=== PATIENT | female | born 1995 | race Caucasian/White ===

== ENCOUNTER 2024-02-26 09:13 | Emergency (ER) | payer BC, SELFPAY ==
[2024-02-26 09:25] VITALS: BP 97/66; PULSE 75; RESP 17; TEMP 36.6; O2SAT 98; BMI 21.7
[2024-02-26 09:35] LABS: Apearance,Urine Cloudy (Clear); Color,Urine Dark Yellow (Yellow); Protein,Urine 1+ (Negative); Specific Gravity, Urine 1.015 (1.005-1.030)
[2024-02-26 09:36] LABS: Bilirubin,Urine Negative (Negative); Blood, Urine 3+ (Negative); Glucose,Urine (UA) Negative (Negative); Ketones,Urine Negative (Negative); UTC Leukocyte Esterase,Urine 2+ (Negative); UTC Nitrate,Urine Negative (Negative); Urobilinogen,Urine 0.2 EU/dl (0.2)
--- NOTE | 2024-02-26 10:09 | ED_ITS ---
Discharge Plan Disposition Patient Disposition: Home, Self-Care Condition: Good Prescriptions Prescriptions: New ciprofloxacin HCl [Cipro] 500 mg tablet 500 mg PO Q12H 3 Days Qty: 6 0RF phenazopyridine [Pyridium] 100 mg tablet 100 mg PO TID Qty: 6 0RF No Action escitalopram oxalate 10 mg tablet 10 mg PO DAILY Referrals Follow up/Referrals: Ovi Lorenz MD [Primary Care Provider] - See instructions Activity Restrictions/Add. Instructions Additional Instructions/Restrictions: Take medication as prescribed. Take Tylenol/Ibuprofen as needed for fever/pain. UTI *Increase fluids. Water not Soda or Tea *Start antibiotic immediately and be sure to take as ordered for the FULL length of time although you should start to see improvement over the next 48 hours *Pyridium as needed Remember this medication will turn your urine . This is normal but it will stain what ever it gets on *You should not use Pyridium for more than 48 hours. If so , follow up with your primary physician to review urine culture and ensure that antibiotic is adequate for infection *Be SURE to follow up anytime for new or worsening symptoms with your family doctor. AND in 48 hours for urine culture results with your family doctor, if you do not have a doctor then you may call back to the [facility] for urine culture results and further treatment. We do recommend that you choose and establish care with a Primary Care Physician. ?AND follow up with them ?in 10-14 days to repeat UA to ensure infection is resolved and blood no longer present *Be sure to let your PCP know that we sent urine cultures from the [facility] so they can follow up to ensure that you area the on the correct antibiotic Call your doctor office and make appointment for 48 hours (2 days from today) ?to follow up and get the results of your urine culture and further treatment or call the [facility] for culture results. Clinical Impressions Clinical Impression: UTI (urinary tract infection) Qualifiers: Urinary tract infection type: acute cystitis Hematuria presence: with hematuria Qualified Code(s): N30.01 - Acute cystitis with hematuria Stand Alone Forms Stand Alone Forms: Work/School Release Instructions Patient Instructions: DI for Urinary Tract Infection (UTI) Print Language Print Language: Thai Discharge ED Provider: Jewell Mejia [facility] HPI General Stated complaint: UTI Mode of Arrival: Ambulatory Source of Information: Patient Limitations: No Limitations Time Seen by Provider: 02/26/24 10:08 Description of Symptoms (Recalled from Triage Doc. by RN): PATIENT C/O BURNING AND URGENCY WITH URINATION AND LOWER ABDOMINAL PAIN X 2 DAYS HEENT Symptoms (Recalled from RN notes): No Resp Symptoms (Recalled from RN notes): No Skin Symptoms (Recalled from RN notes): No MS Symptoms (Recalled from RN notes): No Functional Status (Recalled from RN notes): WNL Related Data Home Medications ?Medication ?Instructions ?Recorded ?Confirmed escitalopram oxalate 10 mg tablet 10 mg PO DAILY 02/26/24 02/26/24 Previous Rx's ?Medication ?Instructions ?Recorded ciprofloxacin HCl 500 mg tablet 500 mg PO Q12H 3 days #6 tabs 02/26/24 (Cipro) phenazopyridine 100 mg tablet 100 mg PO TID 6 doses #6 tabs 02/26/24 (Pyridium) Allergies Allergy/AdvReac Type Severity Reaction Status Date / Time latex Allergy Rash Verified 02/26/24 09:37 Worker's Comp Is this a Worker's Comp case?: No [facility] Disclaimer: The information contained in this section may have been updated after the patient was seen, as this information can be updated by other users. Social History Smoking Status: Never smoker alcohol intake: current alcohol intake frequency: holidays/special occasions only current occupational status: employed Travel in the last 8 weeks: Outside the [facility] ROS Obtained: Yes All systems reviewed & no additional complaints except as documented Constitutional Constitutional: Reports system reviewed and no additional complaints, except as documented Eyes Eyes: Reports system reviewed and no additional complaints, except as documented ENT Ears, Nose, Mouth, and Throat: Reports system reviewed and no additional complaints, except as documented Cardiovascular Cardiovascular: Reports system reviewed and no additional complaints, except as documented Respiratory Respiratory: Reports system reviewed and no additional complaints, except as documented Gastrointestinal Gastrointestingal: Reports system reviewed and no additional complaints, except as documented Genitourinary Female Genitourinary: Reports system reviewed and no additional complaints, except as documented, Reports as per HPI, Reports dysuria, Reports urinary frequency and Reports urinary urgency Musculoskeletal Musculoskeletal: Reports system reviewed and no additional complaints, except as documented Integumentary/Breasts Skin/Breast: Reports system reviewed and no additional complaints, except as documented Neurologic Neurologic: Reports system reviewed and no additional complaints, except as documented Endocrine Endocrine: Reports system reviewed and no additional complaints, except as documented Hematologic/Lymphatic Henatologic/Lymphatic: Reports system reviewed and no additional complaints, except as documented Allergic/Immunologic Allergic/Immunologic: Reports system reviewed and no additional complaints, except as documented Physical Exam General General appearance: alert and in no apparent distress Head Head exam: atraumatic and normocephalic Eye Eye exam: Present normal appearance ENT ENT exam: Present normal exam Neck Neck exam: Present normal inspection; Absent lymphadenopathy Chest Chest inspection: Present normal inspection and symmetric chest wall rise Respiratory Respiratory exam: Present normal lung sounds bilaterally Cardiovascular Cardiovascular exam: Present regular rate, normal rhythm and normal heart sounds Abdominal Exam Abdominal exam: Present soft, tenderness and normal bowel sounds Abdominal tenderness: Present suprapubic Extremities Exam Extremities exam: Present normal inspection Back Exam Back exam: Present normal inspection Neurological Exam Neurological exam: Present alert and oriented X3 Psychiatric Psychiatric exam: Present normal affect and normal mood Skin Skin exam: Present warm, dry and intact Lymphatic Lymphatic Findings: no adenopathy Medical Decision Making Medical Records Screening: Per USPSTF and CDC recommendations, given the prevalence of disease in our region, it is our hospital?s policy to screen for HIV and viral Hepatitis for all patients aged 18 and over and those with ongoing risk factors. Александр Inquiry Pt receiving controlled substance: No Александр was queried for this patient: No Vital Signs: 02/26/24 09:25 Temperature 97.9 F Temperature Source Oral Pulse Rate [Left Brachial] 75 Respiratory Rate 17 Blood Pressure [Left Arm] 97/66 L Blood Pressure Mean [Left Arm] 76 Blood Pressure Source [Left Arm] Automatic Cuff Blood Pressure Position [Left Arm] Sitting 02 Sat by Pulse Oximetry 98 Oxygen Delivery Method Room Air Lab Data Lab results reviewed: Yes I reviewed the patient's lab results. Lab Results 02/26/24 09:24: Urine Color Dark yellow, Urine Appearance Cloudy, Urine pH 7.0, Ur Specific [place] 1.015, Urine Protein 1+, Urine Glucose (UA) Negative, Urine Ketones Negative, Urine Blood 3+, Urine Nitrate Negative, Urine Bilirubin Negative, Urine Urobilinogen 0.2, Ur Leukocyte Esterase 2+ A Orders (Tests/Meds): ORDERS Category Date Time Status Urine Culture Stat Micro 02/26/24 09:10 Received
[2024-02-26 10:33] VITALS: BP 97/66; PULSE 75; RESP 17; TEMP 36.6; O2SAT 98
--- NOTE | 2024-02-28 08:06 | PC.NURSE ---
URINE CULTURE REVIEWED WITH Kelvin CARRANZA APRN, NO CHANGES NEED AT THIS TIME
== END 2024-02-26 10:36 | disposition home or self-care (01) ==
PROVIDERS: Emergency Provider Nurse Practitioner Family; PCP Family Medicine
DX: N30.01 Acute cystitis with hematuria (principal); R30.0 Dysuria; R35.0 Frequency of micturition
CPT/HCPCS: 81003; 87086; 87088; 87186; 99212; G0381

== ENCOUNTER 2024-05-30 09:08 | Outpatient (CLI) | payer BC, SELFPAY ==
[2024-05-30 09:29] LABS: Basophils # 0.1 K/mm3 (0-0.2); Basophils % 0.9 % (0.1-2.0); Eosinophils # 0.1 K/mm3 (0.0-0.4); Eosinophils % 1.7 % (0.1-12.0); Hematocrit 41.6 % (37.0-47.0); Hemoglobin 13.6 g/dL (12.2-16.2); Lymphocytes # 2.9 K/mm3 (0.7-4.5); Lymphocytes % 42.9 % (10-50); Mean Corpuscular HGB Conc 32.7 g/dL (31.8-35.4); Mean Corpuscular Hemoglobin 29.2 pg (27.0-31.2); Mean Corpuscular Volume 89.3 fl (81-99); Mean Platelet Volume 11.6 fl (7.4-10.4); Monocytes # 0.3 K/mm3 (0.1-1.0); Neutrophils # 3.3 K/mm3 (1.8-7.8); Neutrophils % 49.3 % (37.0-80.0); Platelet Count 204 K/mm3 (142-424); Red Blood Count 4.66 M/mm3 (4.20-5.40); Red Cell Distribution Width 12.7 % (11.5-17.5); White Blood Count 6.6 K/mm3 (4.8-10.8)
[2024-05-30 10:05] LABS: Alanine Aminotransferase 17 U/L (12-78); Albumin Level 4.4 g/dl (3.5-5.0); Albumin/Globulin Ratio 1.5 (1.1-1.8); Anion Gap 10.6 mEq/L (5-15); Aspartate Amino Transferase 24 U/L (14-36); Bilirubin,Total 0.5 mg/dl (0.2-1.3); Blood Urea Nitrogen 7 mg/dl (7-17); Calcium 9.6 mg/dl (8.4-10.2); Carbon Dioxide 31 mmol/L (22.0-30.0); Chloride 102 mmol/L (98-107); Estimated Glomerular Filt Rate 117 ml/min (>60); GFR (African American) 141 ML/MIN (>60); Globulin 2.9 g/dL (1.3-3.2); Glucose 90 mg/dl (74-100); Potassium 4.6 mmoL/L (3.5-5.1); Sodium 139 mmol/L (136-145); Total Protein,Serum 7.3 g/dl (6.3-8.2); Triglycerides 125 mg/dl (30-150)
[2024-05-30 10:06] LABS: Alkaline Phosphatase 45 U/L (38-126); Chol/HDL Ratio 2.2 (1-3.5); Cholesterol 224 mg/dl (140-200); HDL Cholesterol 102 mg/dl (40-60); VLDL Cholesterol 25 mg/dL (0-40)
[2024-05-30 10:17] LABS: Direct LDL Cholesterol 79.21 mg/dL (100-129)
[2024-05-30 10:23] LABS: 25-OH Vitamin D, Total 31.1 ng/mL (30-100)
[2024-05-30 10:38] LABS: Thyroid Stimulating Hormone 1.23 uIU/mL (0.465-4.68)
[2024-05-31 11:18] LABS: Estradiol 24.3 pg/mL (.); FSH 4.3 mIU/mL (.); Insulin Level Total 7.8 uIU/mL (2.6-24.9); Prolactin 10.7 ng/mL (4.8-33.4); Testosterone,Total 28 ng/dL (8-60)
[2024-06-02 22:19] LABS: Anti Mullerian Hormone (AMH) 15.8 ng/mL (.)
== END 2024-05-30 23:59 | disposition home or self-care (01) ==
LOC: LAB 09:09
PROVIDERS: PCP Family Medicine; Visit Provider Obstetrics & Gynecology
DX: M41.9 Scoliosis, unspecified (principal); K58.9 Irritable bowel syndrome, unspecified
CPT/HCPCS: 36415; 80053; 80061; 82306; 82397; 82670; 83001; 83036; 83525; 84146; 84403; 84443; 85025

== ENCOUNTER 2024-09-28 09:28 | Outpatient (CLI) | payer BC, SELFPAY ==
--- OUTSIDE RECORDS SUMMARY | 2023-11-11 07:15 | XMS_ITS ---
Author Organization [facility] Address [address] [facility] [address] [place] [phone] Care Team Providers Care Cloth Mercerizer Operator Name Role Phone Ovi Lorenz Primary Care [...] Problem Status W/U Status Risk Notes Problem PCOS (polycystic ovarian syndrome) (E28.2) Active confirmed Vital Signs Blood pressure systolic 112 mm Hg 11/11/19 24 Blood pressure diastolic 70 mm Hg 024 Heart Rate 77 /min 11/11/2023 Height 63 in 11/11/2023 Weight 115.4 lbs 11/11/2023 BMI 20.44 kg/m2 11/11/2023 Encounters Encounter Location Date Provider Diagnosis [facility] [address] [place] [phone] 11/11/2023 Ovi Lorenz Iritis H20.9 ; Acne [...] * MINNIE MONTIELEDOB:[birth year] (29 yo F)Acc No.[id number]:11/11/2023 Progress Notes Patient: JORDON JOHNSON Provider: Hamilton Lorenz M.D. :1995 A ge:28 Y S ex:Female Date:11/11/2023 Address:[address] [place] [address] Subjective: * Chief Complaints: * 1 . To get established. * HPI: H PI: 28 year old female presents with c/o Patient is here today for?Pt here to establish care, previously seen by Dariana Aldrich APRN in [place]. Pt states she was recently dx with Iritis by Dr. Kasey farmer [facility] in [place] a nd was advised to see a General Cleaner, pt unsure if she needs referral . * ROS: D ERMATOLOGY: no R ivis. n o H noble. G ASTROENTEROLOGY: no N ausea. n o V omiting. U ROLOGY: no D ifficulty urinating. n o B lood in urine. * Medical History: I rritable Bowel Syndrome, Anxiety, PCOS. 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 * Procedure Codes: * Electronic signature of Palak Lorenz MD on 09/28/2024 at 09:30 AM EDT Sign off status: Pending * Provider: Hamilton Lorenz M.D. Date: 0 11/11/2023 Generated for Flor rice/Marivel/Andriyitting on: 0 09/28/2024 09:30 AM EDT History and Physical Notes * HPI (History of Present Illness) Category Sub-Category Detail Notes Category Not es HPI Patient is here today for Pt her e to establish care, previously seen by Dariana Aldrich APRN in [place]. Pt states she was recently dx with Iritis by Dr. Kasey Urbina at [facility] in [place] and was advised to see a General Cleaner, pt unsure if she needs referral Examination Category Sub-Category Detail Notes Category Not es General Examination Heart: RSR Lungs: clear to auscultatio n Extremities: no leg edema General Appearance: NAD Skin: scattered comedones, papules and a few pustules on face Peripheral pulses: normal (2+) bilatera lly
--- OUTSIDE RECORDS SUMMARY | 2024-03-02 07:15 | XMS_ITS ---
Author Organization [facility] Address [address] [place] [phone] Care Team Providers Care Ems Educator Name Role Phone Ovi Lorenz Primary Care [...] growth Performing Lab: Notes/Report: Test performed by [employer] [address] [place] [address] , [address], [place] [address] Alcon Jhaveri MD, Pitch Gatherer CLIA: [id number] Specimen Source Urine - Void Culture, Urine See Below Final Report : No growth REASON FOR VISIT [facility] f/u Medications Medication SIG (Take, Route, Fr [...] Provider Diagnosis [facility] [address] [facility] [address] [place] [phone] 03/02/2024 Ovi Lorenz Urinary tract infection, site [...] * TIANA LISAJEFEJOHANNAOB:[birth year] (29 yo F)Acc No.[id number]:03/02/2024 Progress Notes Patient: JORDON JOHNSON Provider: Hamilton Lorenz M.D. :1995 A ge:28 Y S ex:Female Date:03/02/2024 Address:[address] [place] [address] [place], [place] Subjective: * Chief Complaints: * 1 . [facility] f/u. * HPI: H PI: 28 year old female presents with c/o Here for follow up on:?02/26/2024 [facility] visit. Pt went to [facility] for burning with urination, urgency and lower [...] * Images: Billing Information: * Visit Code: 65435 Office Visit, Est Pt., Level 3. * Procedure Codes: 14857 Urinalysis, no micro. * Electronic signature of Palak Lorenz MD on 09/28/2024 at 09:30 AM EDT Sign off status: Pending * Provider: Hamilton Lorenz M.D. Date: 0 03/02/2024 Generated for Flor rice/Marivel/eTransmitting on: 0 09/28/2024 09:30 AM EDT History and Physical Notes * HPI (History of Present Illness) Category Sub-Category Detail Notes Category Not es HPI Here for follow up on: 5 [facility] visit. Pt went to [facility] for burning with urination, urgency and lower [...]
--- OUTSIDE RECORDS SUMMARY | 2024-04-13 05:45 | XMS_ITS ---
[facility] Organization [facility] Address [address] [place] [phone] Care Team Providers Care Joinery Patternmaker Name Role Phone Ovi Lorenz Primary Care Provider Maite Webster Unavailable [phone] Allergies Allergen (clinical drug ingredient) Drug/Non Drug [...] growth Performing Lab: Notes/Report: Test performed by [facility], [facility] [address] [place] [address] , [address], [place] [address] Alcon Jhaveri MD, Mortgage Funder CLIA: [id number] Specimen Source Urine - Void Culture, Urine [...] Provider Diagnosis [facility] [address] [id number] 04/13/2024 Maite Webster Dysuria R30.0 Assessments Encounter [...] * MINNIE MONTIELEDOB:[birth year] (29 yo F)Acc No.[id number]:04/13/2024 Progress Notes Patient: JORDON JOHNSON Provider: ARNOLD Guillory :1995 A ge:28 Y S ex:Female Date:04/13/2024 Address:[address] [place], [place] [phone] Pcp:Ovi Lorenz Subjective: * Chief Complaints: * 1 . Possible uti. * HPI: U rology: 28 year old female presents with c/o frequent urination. c/o burning sensation. c/o flank pain. c/o Pressure. Denies : fever. Pt sts her symptoms started on Thursday, and sts that she does have test strips at home which lit up like a Byron tree. * ROS: D ERMATOLOGY: no R [...] * Images: Billing Information: * Visit Code: 99815 Office Visit, Est Pt., Level 3. * Procedure Codes: 47546 Urinalysis, no micro. 3074F SYST BP LT 130 MM HG. 3078F DIAST BP < 80 MM HG. * Electronic signature of ARNOLD Stanley on 09/28/2024 at 09:31 AM EDT Sign off status: Pending * Provider: ARNOLD Guillory Date: 0 04/13/2024 Generated for Flor rice/Marivel/Diana on: 0 09/28/2024 09:31 AM EDT History and Physical Notes * [...]
--- OUTSIDE RECORDS SUMMARY | 2024-08-24 08:30 | XMS_ITS | Encounter Summary ---
Author Organization [facility] Address [address] [place] [address] Care Team Providers Care Facilities Manager Name Role Phone Tracy Aldrich APRN Primary Care Provider Reason for Visit * Reason Comments Eyemed Exam Encounter Details Date Type Department Care Team (Late st Contact Info) Description 08/24/2024 8:30 AM EDT Office Visit [facility] [address] [facility] [address] [place] [address] Smita Dallas, OD [address] [facility] [address] [place] [address] Myopia of both eyes (Primary [...] place to sleep or slept in a nursing home (including now)? No 04/27/2023 Utilities Answer Date Recorded In the past 12 months has th e [employer], gas, oil, or water [employer] threatened to shut off services in your [...] use of eye drops. Last edited by Kirstine Spears on 08/24/2024 8:43 AM. Lab Results [...] every night. cholecalciferol (Vitamin D-3) 1.25 MG (36917 UT) capsule Take 1 capsule (50,000 Units) [...] optic nerve Refraction Wearing Rx Sphere Cylinder [place] Right -9.50 +1.25 064 Left -9.00 +0.50 106 Type: SVL Manifest Refraction (Auto) Sphere Cylinder [place] Dist VA Right -10.00 +1.25 066 20/25 Left -10.50 +2.00 097 20/20 Manifest Refraction #2 Sphere Cylinder [place] Dist VA Right -9.50 +0.75 075 20/20 -2 Left -9.50 +1.25 106 20/20 -2 Final Rx Sphere Cylinder [place] Dist VA Right -9.50 +0.75 075 20/20 -2 Left -9.50 +1.25 106 20/20 -2 Expiration Date: 08/24/2025 Contact Lens Exam Current Contact Lens Rx Brand Base Curve Diameter Sphere Cylinder [place] Addl. Specs Right Precision 1 for Astigmatism One Day 8.5 14.5 -8.00 -1.25 160 last Rx Left Precision 1 for Astigmatism One Day 8.5 14.5 -8.00 -1.25 020 last Rx Current Contact Lens Rx #2 Brand Base Curve Diameter Sphere Cylinder [place] Addl. Specs Right Acuvue 1 Day Moist for Astigmatism 8.5 14.5 -8.50 -1.25 170 favored old Rx Left Acuvue 1 Day Moist for Astigmatism 8.5 14.5 -8.50 -1.25 180 favored old Rx Current Contact Lens Rx #3 (Trial Lens, Ordered) Brand Base Curve Diameter Sphere Cylinder [place] Addl. Specs Right Acuvue 1 Day Moist [...] Office Visit [facility] [address] [place] [address] [place] [address] Smita Dallas, OD [address] [place] [address] documented as of this encounter [...] documented as of this encounter Care Teams Facilities Manager Relationship Specialty Start Date End Date Tracy Aldrich APRN [address] [place] [address] PCP - General 05/12/22 documented as of this encounter
--- OUTSIDE RECORDS SUMMARY | 2024-09-28 09:30 | XMS_ITS | Patient Health Record ---
Author Organization [facility] Address [address] [facility] [address] [place] [address] Care Team Providers Care Ornamental Bronze Worker Name Role Phone Piper Chiu Unavailable [phone] Allergies Allergen (clinical drug ingredient) Drug/Non Drug Allergy documented on EMR Reaction Allergy Type Onset Date Status oxycodone OXYCODONE (uncoded) Unspecified Allergy 10/29/19 18 Active Reason For Referral No Information Social History Social History Additional Details Category Social Info Options Details Miscellaneous: Caffeine: CAFFEINE USE: 1-3 /day Problems Problem Type SNOMED Code ICD Code Onset Dates Problem Status W/U Status Risk Notes Problem Cervical smear, as part of routine gynecological examination (Z01.419) 6 Active confirmed Annual without abnormal findings Plan Of Treatment No Information Medical (General) History Medical History History ICD Code Anxiety Urinary Tract Infections Yeast Infections A Routine ABORTIONS: 0 MENSTR FLOW: Moderate GILDESS FE 1.5/30 1.5-30 MG-MCG ORAL TAB LET, ORAL Surgical History Surgery Date(Month/Year) denies
--- OUTSIDE RECORDS SUMMARY | 2024-09-28 09:30 | XMS_ITS | Clinical Summary ---
Author Organization [facility] Address [address] [place] [id number] Care Team Providers Care Air Commodore Name Role Phone Jannette Armenta MD Primary Care Provi kailey Allergies Active Allergy Reactions Criticality Noted Date Comments Latex 02/07/2016 Medications Norethindrone Acet-Ethinyl Est (LOESTRIN 1.530, 21,) 1.5-30 MG-MCG tablet Take by mouth. Active Active Problems Problem Noted Date Diagnosed Date Chronic constipation 02/07/2016 Acne vulgaris 01/25/2016 Immunizations Immunization Administration Dates Next Due Tdap 06/19/2017 Family History Medical History Relation Name Comments Mental illness Father Other Father Suicide Stroke Father Relation Name Status Comments Father Social History Tobacco Use Types Packs/Day Years Used Date Smoking Tobacco: Never Smokeless Tobacco: Never Alcohol Use Standard Drinks/Week Comments Not Asked 0 (1 standard drink = 0.6 oz pur e alcohol) Abuse Screen Answer Date Recorded Unsafe at Home or Work/School Not on file Feels Threatened by Someone? Not on file 10/2022 Does Anyone Keep You from Co ntacting Others or Doint Things Outside the Home? Not on file 12/01/2022 Physical Sign of Abuse Present Not on file 1 Housing Stability Answer Date Recorded Current Living Arrangements Not on file 10/2022 Potentially Unsafe Housing Conditions Not on matilde e 12/01/2022 Family and Community Support Answer Corey e Recorded Help with Day-to-Day Activities Not on file 12/01/2022 Lonely or Isolated Not on file 12/01/2022 Employment Answer Date Recorded Do you want help finding or keeping work or a mariaelena b? Not on file 12/01/2022 Disabilities Answer Date Recorded Concentrating, Remembering, or Making Decisions Difficulty Not on file 12/01/2022 Doing Errands Independently Difficulty Not on fi le 12/01/2022 Education Answer Date Recorded Help with school or training? Not on file Preferred Language Not on file 12/01/2022 Comments Unknown Sex and Gender Information Value Date Recorded Sex Assigned at Female 11/25/2019 9:49 AM EDT Legal Sex Female 8:41 PM EDT Gender Identity Female 11/25/2019 9:49 AM EDT Sexual Orientation Straight 11/25/2019 9: 49 AM EDT Last Filed Vital Signs Vital Sign Reading Time Taken Comments Blood Pressure 105/62 06/19/2017 8:21 AM EDT Pulse 82 07/13/2014 1:10 PM EDT Temperature 36.3 C (97.3 F) 06/19/2017 8:21 AM EDT Respiratory Rate 20 07/13/2014 1:10 PM EDT Oxygen Saturation - - Inhaled Oxygen Concentration - - Weight 51.3 kg (113 lb) 06/19/2017 8:21 AM EDT Height 160 cm (5' 3 ) 06/19/2017 8:21 AM EDT Body Mass Index 20.02 06/19/2017 8:21 AM EDT Plan of Treatment Health Maintenance Due Date Last Done Comments Annual Gynecologic Pelvic an d Breast Exam 1993 ANNUAL PHYSICAL 01/25/2016 HEPATITIS C SCREENING 01/25/2016 COVID-19 Vaccine ( - 2023-2 5 season) 2023 INFLUENZA VACCINE 11/23/2024 TDAP/TD VACCINES (2 - Td or Tdap) 06/20/2027 018 Pneumococcal Vaccine 0-49 Aged Out No longer eligible based on patient's age to complete this topic Insurance [facility] PPO Member Subscriber Plan / Payer (Ef fective 2018-Present) Name:Zayda Perez Relation to Subscriber:Self Name:Zayda Perez Payer ID:[id number] (NAIC) Type:Not on file Address: [facility] [id number] [place] [id number] Care Teams Air Commodore Relationship Specialty Start Date End Date Jannette Armenta MD [address] [place] [address] PCP - General Internal Medicine 02/07/16
--- OUTSIDE RECORDS SUMMARY | 2024-09-28 09:31 | XMS_ITS | Patient Health Record ---
[facility] Address [address] [place] [id number] Care Team Providers Care Milling Machine Operator Name Role Phone Oiv Lorenz Primary Care Provider Maite Webster Unavailable [phone] Allergies Allergen (clinical drug ingredient) Drug/Non Drug [...] growth Performing Lab: Notes/Report: Test performed by [employer] [facility] , [address], [place] [address] Alcon Jhaveri MD, Marine Diesel Technician CLIA: [id number] Specimen Source Urine - Void Culture, Urine See Below Final Report : No growth IRAIDA Reviewed date:11/04/2023 10:00:54 AM Interpretation: Performing Lab: Notes/Report: Urinalysis - Inhouse Reviewed date:04/13/2024 11:24:01 AM Interpretation: Performing Lab: Notes/Report: Color/Clarity yellow/cloudy Leuk 2+ Nitrite neg Urobili 3.2 Protein neg pH 7.0 Blood trace-intact Sp. Gr. 1.020 Ketone neg Bili neg Gluc neg P-Culture, Urine Reviewed date:04/15/2024 01:30:36 PM Interpretation: No growth Performing Lab: Notes/Report: Test performed by [employer] [address] [place] [address] , [address], [place] [address] Alcon Jhaveri MD, Marine Diesel Technician [place]: [id number] Specimen Source Urine - Void Culture, Urine See Below Final Report : No growth Reason For Referral No Information Medications Medication SIG (Take, Route, Fr equency, Duration) Notes Start Date End Date Status Lexapro 10 MG 1 tablet Orally Once a day; Duration: 30 day(s) Active Bactrim DS 800-160 MG 1 tablet Orally Tw o times a day; Duration: 7 days 04/13/2024 Active ZyrTEC Allergy 10 MG 1 tablet Orally Onc e a day; Duration: 30 day(s) Active Problems Problem Type SNOMED Code ICD Code Onset Dates Problem Status W/U Status Risk Notes Problem Polycystic ovary syndrome (disorder) (769294632) PCOS (polycystic ovarian syndrome) (E28.2) Active confirmed Vital Signs Heart Rate 100 /min 03/02/2024 Blood pressure diastolic 70 mm Hg 04/13/2024 Height 63 in 04/13/2024 Blood pressure systolic 110 mm Hg 04/13/2024 Weight 122.0 lbs 04/13/2024 BMI 21.61 kg/m2 04/13/2024 Encounters Encounter Location Date Provider Diagnosis [facility] [address] [place] [id number] 11/11/2023 [facility] Iritis H20.9 ; Acne vulgaris L70.0 and PCOS (polycystic ovarian syndrome) E28.2 [facility] [address] [place] [phone] 03/02/2024 [facility] Urinary tract infection, site not specified N39.0 and Unspecified Escherichia coli [E. coli] as the cause of diseases classified elsewhere B96.20 [facility] [address] [place] [id number] 04/13/2024 Maite Crowdy Dysuria R30.0 [facility] [address] [place] [id number] 04/15/2024 Maite Eleanor Assessments Encounter Date Diagnosis (ICD Code) Assessment Notes Treatment Notes Treatment Clinical Notes Section Notes 11/11/2023 Iritis (ICD-10 - H20.9) Need previous records 03/02/2024 Urinary tract infection, site not specified (ICD-10 - N39.0) 03/02/2024 Unspecified Escherichia coli [E. coli] as the cause of diseases classified elsewhere (ICD-10 - B96.20) 04/13/2024 Dysuria (ICD-10 - R30.0) Increase water intake, no caffeine, no baths only showers 11/11/2023 Acne vulgaris (ICD-10 - L70.0) Discussed OTC treatments 11/11/2023 PCOS (polycystic ovarian syndrome) (ICD-10 - E28.2) Patient declines treatment today, discussed Metformin and spironolactone. She does not want to use oral contraceptives. Need to see records from previous evaluation. Patient will provide records Plan Of Treatment No Information Insurance Providers Payer Name Payer Address Payer Phone Subscriber Number Group Number Insured Name Patient Relationship to Insured Coverage Start Date Coverage End Date [facility] [id number] [place] [address] [id number] JORDON MONTIEL Self - patient is the insured Medical (General) History Medical History History ICD Code Irritable Bowel Syndrome Anxiety PCOS Surgical History Surgery Date(Month/Year) Foot - Plantar wart 2019
--- OUTSIDE RECORDS SUMMARY | 2024-09-28 09:31 | XMS_ITS | Encounter Summary ---
Author Organization Healthcare Address [address] [place] [address] Care Team Providers Care Snuff Drier Name Role Phone Liss Tram Salgado APRN Primary Care Provider Tracy Aldrich APRN Primary Care Provider Encounter Details Date Type Department Care Team (Late st Contact Info) Description 12/05/2020 Lab Requisition [facility] [address] [place] [address] Flavio James MD [address] [place] [address] Radha Social History Tobacco Use Types Packs/Day Years Used Date Smoking Tobacco: Never Smokeless Tobacco: Never Alcohol Use Standard Drinks/Week Comments Yes 0 (1 standard drink = 0.6 oz pure alcohol) Alcoholic Drinks/day: Social alcohol use Comments Unknown Sex and Gender Information Value Date Recorded Sex Assigned at Female 11/13/2020 10:28 AM EDT Legal Sex Female 7:09 PM EDT Gender Identity Female 11/13/2020 10:28 AM EDT Sexual Orientation Straight 11/13/2020 10 :28 AM EDT COVID-19 Exposure Response Date Recorded In the last month, have you been in contact with someone who was confirmed or suspected to have Coronavirus / COVID-19? No / Unsure 11/28/2020 6:28 PM EDT documented as of this encounter Plan of Treatment Upcoming Encounters Date Type Department Care Team (Late st Contact Info) Description 09/27/2025 8:15 AM EDT Office Visit [facility] [address] [place] [address] Smita [place], OD [address] [place] [address] documented as of this encounter Procedures Procedure Name Priority Date/Time Associated Diagnosis Comments SURGICAL PATHOLOGY EXAM Routine 12/06/2020 5:51 PM EDT Melena documented in this encounter Results * Surgical Pathology Exam (12/06/2020 5:51 PM EDT) Case Report Surgical Pathology Case: [id number] Authorizing Provider: Flavio James MD Collected: Ordering Location: [facility] Lab Received: 12/05/2020 1309 Pathologist: Linda Dhillon MD Specimen: Rectum, Rectal Bx 12/06/2020 5:51 PM EDT [facility] Final Diagnosis Rectum, biopsy: Normal colonic mucosa with lymphoid follicle Mucosal edema and focal minor superficial petechial hemorrhage (consistent with preparation artifact) 12/06/2020 5:51 PM EDT [facility] at 1751 EDT Clinical Information Hematochezia 12/06/2020 5:51 PM EDT [facility] Gross Description A. RECTAL BX The specimen is received in formalin labeled rectal BX , and consists of three colon-brown soft tissue fragments ranging from 0.2-0.3 cm in greatest dimension. Entirely submitted in cassette A1. Viri Houston 12/06/2020 5:51 PM EDT [facility] Note: A resident was involved in the service. I attest I examined the relevant preparations for the specimens and confirmed the diagnosis or interpretation. 12/06/2020 5:51 PM EDT [facility] Tissue Rectum structure / Unknown 12/05/2020 1:09 PM EDT us Flavio James MD LAB PATHOLOGY ORDERABLES Final Result [facility] [address] [place] [address] documented in this encounter Visit Diagnoses Diagnosis Melena Blood in stool documented in this encounter Additional Health Concerns Assessment Noted Time A fall risk assessment has been complete d for the patient 11/13/2020 12:24 PM EDT documented as of this encounter Care Teams Snuff Drier Relationship Specialty Start Date End Date Tram Leija APRN [address] [place] [phone] PCP - General 07/06/20 05/11/22 Tracy Aldrich APRN [address] [place] [phone] PCP - General 05/12/22 documented as of this encounter
--- OUTSIDE RECORDS SUMMARY | 2024-09-28 09:31 | XMS_ITS | Encounter Summary ---
Author Organization Healthcare Address [address] [place] [address] Care Team Providers Care Edger Tailer Name Role Phone Tracy Aldrich APRN Primary Care Provider Encounter Details Date Type Department Care Team (Late st Contact Info) Description 08/31/2024 Telephone [facility] [address] [facility] [place] [address] Smita Dallas, OD [address] [address] Social History Tobacco Use Types Packs/Day Years Used Date Smoking Tobacco: Never Passive Smoke Exposure: Never Smokeless Tobacco: Never Alcohol Use Standard [...] money to buy more. Never true 04/27/19 24 Within the past 12 months, t he [...] place to sleep or slept in a alf (including now)? No 04/27/2023 Utilities Answer Date Recorded In the past 12 months has th e electric, gas, oil, or water company threatened to shut off services in your [...] on file documented as of this encounter Plan of Treatment Upcoming Encounters Date Type Department Care Team (Late st Contact Info) Description 09/27/2025 8:15 AM EDT Office Visit [facility] [address] [place] [address] Smita [place], OD [address] [place] [address] documented as of this encounter Visit Diagnoses Not on filedocumented in this encounter Additional Health Concerns Assessment Noted Time A fall risk assessment has been complete d for the patient 08/25/2023 8:12 AM EDT A Body Mass Index follow-up plan has been documented for the patient 08/25/2023 8:45 AM EDT documented as of this encounter Care Teams Edger Tailer Relationship Specialty Start Date End Date Tracy Aldrich APRN [address] [place] [address] PCP - General 05/12/22 documented as of this encounter
--- OUTSIDE RECORDS SUMMARY | 2024-09-28 09:31 | XMS_ITS | Encounter Summary ---
Author Organization [facility] Address [address] [place] [address] Care Team Providers Care Academic Associate Name Role Phone Tracy Aldrich APRN Primary Care Provider Reason for Visit * Reason Comments Med Refill Encounter Details Date Type Department Care Team (Late st Contact Info) Description 08/05/2024 Refill [facility] Team [facility] [address] [place] [address] Tracy Aldrich APRN [address] [place] [address] Generalized anxiety disorder Social History Tobacco Use Types Packs/Day Years [...] place to sleep or slept in a assisted (including now)? No 04/27/2023 Utilities Answer Date [...] as of this encounter Miscellaneous Notes * Telephone Encounter - Giuliaan Bansal, PharmD - 08/09/2024 12:33 PM EDT 1 medication(s) has been approved per protocol. Appt requested to be scheduled by [facility]. Patient must schedule an appointment and be seen in clinic for additional refills. documented in this encounter Plan of Treatment Upcoming Encounters Date Type Department Care Team (Late st Contact Info) Description 09/27/2025 8:15 AM EDT Office Visit [facility] [address] [facility] [place] [address] Smita Dallas, OD 110 [facility] [address] [place] [address] documented as of this encounter Visit Diagnoses Diagnosis Generalized anxiety disorder documented in this encounter Additional Health Concerns Assessment Noted Time A fall risk assessment has been complete d for the patient 08/25/2023 8:12 AM EDT A Body Mass Index follow-up plan has been documented for the patient 08/25/2023 8:45 AM EDT documented as of this encounter Care Teams Academic Associate Relationship Specialty Start Date End Date Tracy Aldrich APRN [address] [place] [phone] PCP - General 05/12/22 documented as of this encounter
--- OUTSIDE RECORDS SUMMARY | 2024-09-28 09:31 | XMS_ITS | Encounter Summary ---
Author Organization [facility] Address [address] [place] [address] Care Team Providers Care Bowling Ball Grader And Marker Name Role Phone Tracy Aldrich APRN Primary Care Provider Encounter Details Date Type Department Care Team (Latest Contact Info) Description 08/24/2024 Travel Social History Tobacco Use Types Packs/Day Years [...] place to sleep or slept in a fdc (including now)? No 04/27/2023 Utilities Answer Date [...] Description 09/27/2025 8:15 AM EDT Office Visit [facility] [address] [facility] [facility] [place] [address] Smita [place], OD [address] [facility] [address] [place] [address] documented as of this encounter Visit Diagnoses Not on filedocumented in this encounter Additional Health Concerns Assessment Noted Time A fall risk assessment has been complete d for the patient 08/25/2023 8:12 AM EDT A Body Mass Index follow-up plan has been documented for the patient 08/25/2023 8:45 AM EDT documented as of this encounter Care Teams Bowling Ball Grader And Marker Relationship Specialty Start Date End Date Tracy Aldrich APRN [address] [place] [phone] PCP - General 05/12/22 documented as of this encounter
--- OUTSIDE RECORDS SUMMARY | 2024-09-28 09:31 | XMS_ITS | Clinical Summary ---
Author Organization [facility] Address [address] [place] [address] Care Team Providers Care Glue Drier Operator Name Role Phone Tracy Aldrich APRN Primary Care Provider Allergies Active Allergy Reactions Criticality Noted Date Comments Latex Rash Low 02/07/2016 Other Other - please docum ent in the comment field Low 03/18/2018 Latex - Rash Oxycodone Other - please docum ent in the comment field Medium 09/17/2021 Any oxy drugs Medications * This document contains information received from the source organization and may not represent a complete record from that organization. tretinoin (Retin-A) 0.1 % cream Apply topically every night. 1 Active imiquimod (Aldara) 5 % cream Apply topically every night. 2 Active fexofenadine (Amira) 60 MG tablet Take 1 tablet (60 mg) by mouth 1 (one) time each day. Active Dapsone 5 % topical gel Apply topically 1 (one) time per week. 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 30 tablet 2 4 Active Additional Information Patient not taking.Reported on 08/24/2024 cholecalciferol (Vitamin D-3) 1.25 MG (17413 UT) capsule Take 1 capsule (50,000 Units) by mouth 1 (one) time per week. 12 capsule 4 Active Additional Information Patient not taking.Reported on 08/24/2024 escitalopram (Lexapro) 10 MG tabletIndicatio ns:Generalized anxiety disorder Take 1 tablet by mouth daily. 90 tablet 5 Active Active Problems Problem Noted Date Diagnosed Date Regular astigmatism of both eyes 08/24/2024 Retinal drusen of both eyes 08/24/2024 PCOS (polycystic ovarian syndrome) 06/24/2023 Visual disturbance 08/20/2020 Blood pressure lower than prior measurement 08/2020 Irregular periods/menstrual cycles 01/31/2020 High myopia, bilateral 01/05/2020 Abnormal MRI 10/24/2019 Migraine 10/12/2019 Myopia of both eyes 09/29/2019 Irritable bowel syndrome wit h both constipation and diarrhea 09/08/2019 Plantar wart, left foot 10/28/2018 Scoliosis 10/28/2018 Chronic constipation 02/07/2016 Acne vulgaris 01/25/2016 Resolved Problems Problem Noted Date Diagnosed Date Resolved Date Lymphadenopathy, inguinal 03/01/2020 Lymphadenopathy, submandibular 01/31/2020 07/01/2022 Subjective visual disturbance of left eye 09/22/2019 07/01/2022 Breakthrough bleeding 09/19/20192022 Sinusitis 08/18/2019 07/01/2022 ETD (eustachian tube dysfunction) 08/11/2019 07/01/2022 Pain of toe of right foot 10/28/2018 Situational anxiety 10/28/2018 07/02/19 23 Encounters Date Type Department Care Team Description 08/31/2024 Telephone [facility] [address] [place] [address] Smita [place], DEREK 08/24/2024 8:30 AM EDT Office Visit [facility] [address] [facility] [place] [address] Smita [place], OD Myopia of both eyes (Primary Dx); Regular astigmatism of both eyes; Retinal drusen of both eyes 08/24/2024 Travel 08/05/2024 Refill [facility] Team [facility] [address] [place] [address] Tracy Aldrich APRN Generalized anxiety disorder from Last 3 Months Immunizations Immunization Administration Dates Next Due HPV 9-Valent 09/15/2022,05/16/2022,03/18/2022 Hep B, adult 09/17/2018,04/20/2018,03/18/2018 Influenza, Unspecified 11/16/2019,11/12/2018 Influenza, injectable, quadr ivalent, preservative free 12/19/2022,01/09/2022,12/05/2020 Influenza, recombinant, quad rivalent, injectable, preservative free 09/19/2022 Influenza, seasonal, injecta ble, preservative free 12/09/2023 MMR 05/24/2018,04/20/2018 Pfizer Covid-19 Vaccine 12y+ , Manas Protein, PF, Renzo-Sucrose 12/19/2022 [employer] COVID-19 Vac cine (Purple Cap) 12+ 03/29/2020,03/08/2020 Tdap 06/19/2017 Varicella 05/24/2018,04/20/2018 Family History Medical History Relation Name Comments Alcohol abuse Father Darwin Saavedra Depression Father Darwin Saavedra CHRISTIANO disease Father Darwin Saavedra Gallbladder disease Father Darwin Saavedra Hyperlipidemia Father Darwin Saavedra Hypertension Father Darwin Saavedra Mental illness Father Darwin Saavedra Migraines Father Darwin Saavedra Suicide Father Darwin Saavedra Diverticulosis Maternal Grandmother Fibroids Mother Stomach problems Mother ulcer Crohn's disease Other cousin Stroke Other Stroke Paternal Grandfather Stroke Paternal Grandmother Ada [place] Bipolar depression Sister 1 Depression Sister 2 [place] Mental illness Sister 2 May Relation Name Status Comments Father Darwin Saavedra Maternal Grandmother Mother Other Paternal Grandfather Paternal Grandmother Ada [place] Alive Sister 1 Sister 2 [place] Alive Social History Tobacco Use Types Packs/Day Years [...] file Not on file Not on file Last Filed Vital Signs Vital Sign Reading Time Taken Comments Blood Pressure 96/61 06/24/2023 7:59 AM EDT Pulse 73 06/24/2023 7:59 AM EDT Temperature 37.1 C (98.7 F) 06/24/2023 7:59 AM EDT Respiratory Rate - - Oxygen Saturation 100% 06/24/2023 7:59 AM EDT Inhaled Oxygen Concentration - - Weight 52.4 kg (115 lb 8.3 oz) 06/24/2023 7:59 A M EDT Height 160 cm (5' 3 ) 04/27/2023 2:51 PM EST Body Mass Index 20.46 04/27/2023 2:51 PM EST Plan of Treatment Upcoming Encounters Date Type Department Care Team (Late st Contact Info) Description 09/27/2025 8:15 AM EDT Office Visit [facility] [address] [facility] [place] [address] Smita [place], OD [address] [facility] [address] [address] Health Maintenance Due Date Last Done Comments [facility]-HIV Screening 1993 [facility]-Hepatitis C Screening 1993 [facility]-/Child/Adol SDOH Screenings 1993 [facility]- SDOH Screenings 2011 [facility]-Adult SDOH Screenings 2011 [id number] Vaccine ( season) 2023 12/19/2022, 12/07/2020, 03/29/2020, Additional history exists [facility]-Depression Screening 06/23/2024 06/24/2023 [facility]-Influenza Vaccine (#1) 10/24/202412/08, 12/19/2022, 09/19/2022, Additional history exists [facility]-Pap Smear 03/18/2025 03/18/2022 [facility]-Cervical Cancer Screening 03/18/2027 [facility]-HPV/Cotest 03/18/2027 03/18/2022 [facility]-DTaP,Tdap,and Td Vaccines (2 - Td or Tdap) 06/20/2027 06/19/2017 [facility]-Zoster Vaccines (1 of 2) 2043 05/24/2018, 04/20/2018 [facility]-Varicella Vaccines Completed 05/24/2018, 2018 [facility]-Hepatitis B Vaccines Completed 019, 04/20/2018, 03/18/2018 HPV Vaccines Completed 09/15/2022, 04/24, 03/18/2022 [facility]-HIB Vaccines Aged Out No longer e ligible based on patient's age to complete this topic [facility]-Hepatitis A Vaccines Aged Out No longer eligible based on patient's age to complete this topic [facility]-IPV Vaccines Aged Out No longer e ligible based on patient's age to complete this topic [facility]-Pneumococcal Vaccine: Pediatrics (0 to 5 Years) and At-Risk Patients (6 to 49 Years) Aged Out No longer eligible based on patient's age to complete this topic [facility]-Rotavirus Vaccines Aged Out No lo nger eligible based on patient's age to complete this topic Procedures Procedure Name Priority Date/Time Associated Diagnosis Comments PAP TEST - CYTOLOGY Routine 03/18/2022 2:36 PM EST Well woman exam with routine gynecological exam from Last 3 Months or Most Recently Relevant to Health Maintenance Results * Pap Test (03/18/2022 2:36 PM EST) Case Report Cytology Case: [id number] Authorizing Provider: Marilynn Quintana APRN, Collected: 03/18/2022 1436 DNP Ordering Location: Medical Office Building Received: 03/18/2022 1603 Obstetrics and Gynecology First Screen: Chio Rangel Specimen: ThinPrep Pap Test, Liquid-Based Cervical/Vaginal, CERVICAL/VAGINAL 03/24/2022 4:21 PM EST [facility] Interpretation NEGATIVE FOR INTRAEPITHELIAL LESION OR MALIGNANCY 03/24/2022 4:21 PM EST [facility] at 1621 EST Specimen Adequacy Satisfactory for evaluation; endocervical/hernandez sformation zone component present. Obscuring inflammation. 03/24/2022 4:21 PM EST [facility] Cervical cytology is a screening test primarily for squamous cancers and precursors and has associated false negative and positive results. New technologies such as liquid based sampling may decrease but will not eliminate all false negative results. Regular screening and follow-up of unexplained clinical signs and symptoms are recommended to minimize false negative results. Please see the ASCCP website (www.asccp.org)fo r followup recommendations. If HPV testing was requested, correlation with the results is suggested (please call Microbiology at [phone] for results). 03/24/2022 4:21 PM EST [facility] Menstrual Status Cyclic 03/24/19 4:21 PM EST [facility] Contraceptive History Not Applicable 03/24/2022 4:21 PM EST [facility] Screening Type Routine Screen 2022 4:21 PM EST [facility] High Risk? No 03/24/2022 4:21 PM EST [facility] HPV Testing Requested? No HPV Testing Requested 03/24/2022 4:21 PM EST [facility] Previous Cancer History No 03/24/2022 4:21 PM EST [facility] Clinical Information Z01.419 - Well woman exam with routine gynecological exam [ICD-10-CM] 03/24/2022 4:21 PM EST [facility] Last Menstrual Period 02/20/2022 03/24/2022 4:21 PM EST [facility] Swab Vaginal and cervical cytologic material / Unknown Non-blood Collection / Unknown 03/18/2022 2:36 PM EST 03/18/2022 4:03 PM EST Marilynn Quintana APRN, DNP LAB CYTOLOGY ORDERABL ES Final Result [facility] [address] [place] [phone] from Last 3 Months or Most Recently Relevant to Health Maintenance Insurance [employer] Care Teams Glue Drier Operator Relationship Specialty Start Date End Date Tracy Aldrich APRN [address] [place] [phone] PCP - General 05/12/22
== END 2024-09-28 23:59 | disposition home or self-care (01) ==
LOC: LAB 09:28
PROVIDERS: PCP Family Medicine; Visit Provider Obstetrics & Gynecology
DX: Z34.90 Encounter for supervision of normal pregnancy, unspecified, unspecified trimester (principal)
CPT/HCPCS: 36415; 84144; 84702

== ENCOUNTER 2024-10-05 11:23 | Outpatient (CLI) | payer BC, SELFPAY ==
--- OUTSIDE RECORDS SUMMARY | 2024-08-24 08:30 | XMS_ITS | Encounter Summary ---
Author Organization [facility] Address [address] [place] [address] Care Team Providers Care Glazier Artist Name Role Phone Tracy Aldrich APRN Primary Care Provider Reason for Visit * Reason Comments Eyemed Exam Encounter Details Date Type Department Care Team (Late st Contact Info) Description 08/24/2024 8:30 AM EDT Office Visit [facility] [address] [place] [address] Smita Dallas, OD [address] [facility] [address] [place] [address] Myopia of both eyes (Primary Dx); Regular astigmatism of both eyes; Retinal drusen of both eyes Social History Tobacco Use Types Packs/Day Years Used Date Smoking Tobacco: Never Passive Smoke Exposure: Never Smokeless Tobacco: Never Tobacco Cessation:Counseling Given: No Alcohol Use Standard Drinks/Week Comments Yes 0 (1 standard drink = 0.6 oz pur e alcohol) 5 drinks/week Humiliation, Afraid, Rape, and Kick questionnair e Answer Date Recorded Within the last year, have y ou been afraid of your partner or ex-partner? No 04/27/2023 Within the last year, have y ou been humiliated or emotionally abused in other ways by your partner or ex-partner? No Within the last year, have y ou been kicked, hit, slapped, or otherwise physically hurt by your partner or ex-partner? No 04/27/2023 Within the last year, have y ou been raped or forced to have any kind of sexual activity by your partner or ex-partner? No 04/27/2023 PHQ-2 Answer Date Recorded Patient Health Questionnaire-2 Score 0 06/24/2023 Hunger Vital Sign Answer Date Recorded Within the past 12 months, y ou worried that your food would run out before you got the money to buy more. Never true 04/27/19 Within the past 12 months, t he food you bought just didn't last and you didn't have money to get more. Never true 04/27/2023 PRAPARE - Transportation Answer Date Re corded In the past 12 months, has l ack of transportation kept you from medical appointments or from getting medications? No 05/2023 In the past 12 months, has l ack of transportation kept you from meetings, work, or from getting things needed for daily living? No 04/27/2023 Housing Stability Vital Sign Answer Corey e Recorded In the last 12 months, was t here a time when you were not able to pay the mortgage or rent on time? No 04/27/2023 In the last 12 months, how many places have you lived? 1 04/27/2023 In the last 12 months, was t here a time when you did not have a steady place to sleep or slept in a mcc (including now)? No 04/27/2023 Utilities Answer Date Recorded In the past 12 months has th e [email or web address], gas, oil, or water [employer] threatened to shut off services in your home? 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 female who presents to the clinic today for: HPI 29 year old, female patient presents to clinic for a complete eye exam. HX of high myopia OU and retinal drusen OU. Pt reports vision is stable. Pt denies any flashes, states floaters are stable. Pt denies any eye pain/irritation. Pt denies the use of eye drops. Last edited by Kristine Spears on 08/24/2024 8:43 AM. Lab Results Component Value Date HGBA1C 5.2 06/24/2023 REVIEW OF SYSTEMS: ROS Positive for: Eyes Negative for: Constitutional, Gastrointestinal, Neurological, Skin, Genitourinary, Musculoskeletal,HENT, Endocrine, Cardiovascular, Respiratory, Psychiatric, Allergic/Imm, Heme/Lymph Last edited by Kristine Spears on 08/24/2024 8:28 AM. Negative except for ROS Positive for: Eyes Negative for: Constitutional, Gastrointestinal, Neurological, Skin, Genitourinary, Musculoskeletal,HENT, Endocrine, Cardiovascular, Respiratory, Psychiatric, Allergic/Imm, Heme/Lymph Last edited by Kristine Spears on 08/24/2024 8:28 AM. Referring physician: No ref. provider found HISTORICAL INFORMATION: Selected notes from the medical record: CURRENT MEDICATIONS: No current outpatient medications on file. (Ophthalmic Drugs) No current facility-administered medications for this visit. (Ophthalmic Drugs) Current Outpatient Medications (Other) Medication Sig Dapsone 5 % topical gel Apply topically 1 (one) time per week. escitalopram (Lexapro) 10 MG tablet Take 1 tablet by mouth daily. fexofenadine (Amira) 60 MG tablet Take 1 tablet (60 mg) by mouth 1 (one) time each day. imiquimod (Aldara) 5 % cream Apply topically every night. tretinoin (Retin-A) 0.1 % cream Apply topically every night. cholecalciferol (Vitamin D-3) 1.25 MG (49772 UT) capsule Take 1 capsule (50,000 Units) by mouth 1 (one) time per week. (Patient not taking: Reported on 08/24/2024) hydrOXYzine HCl (Atarax) 10 MG tablet Take 1 tablet (10 mg) by mouth at night if needed for anxiety. (Patient not taking: Reported on 08/24/2024) No current facility-administered medications for this visit. (Other) ALLERGIES Allergies[1] PAST MEDICAL HISTORY Past Medical History[2] Surgical History[3] FAMILY HISTORY Family History[4] SOCIAL HISTORY Social History[5] GENERAL EXAM: General Exam: Neuro: Alert and Oriented x 3, normal mood and affect OPHTHALMIC EXAM: Base Eye Exam Visual Acuity (Snellen - Linear) Right Left Dist cc 20/25 20/25 -2 +1 Tonometry (Tonopen, 8:55 AM) Right Left Pressure 16 15 Pupils Pupils APD Right PERRL None Left PERRL None Visual Bean (Counting fingers) Right Left Full Full Extraocular Movement Right Left Full, Ortho Full, Ortho Neuro/Psych Oriented x3: Yes Mood/Affect: Normal Dilation Both eyes: 1% Tropicamide @ 9:17 AM Slit Lamp and Fundus Exam External Exam Right Left External Normal Normal Slit Lamp Exam Right Left Lids/Lashes Normal for age Normal for age Conjunctiva/Sclera Normal Normal Cornea Clear and compact Clear and compact Anterior Chamber Deep and quiet Deep and quiet Iris PPM PPM Lens Clear Clear Vitreous Normal Normal Fundus Exam Right Left Disc No edema; no vascularization; good color (Jason 78 d Lens) No edema; no vascularization; good color (Jason 78 d Lens) C/D Ratio .3 .3 Macula Normal reflex; without edema Normal reflex; without edema Vessels Perfused; no tortuosity or abnormality Perfused; no tortuosity or abnormality Periphery flat and attached 360 degrees few drusen nasal to optic nerve flat and attached 360 degrees. few drusen nasal to optic nerve Refraction Wearing Rx Sphere Cylinder [place] Right -9.50 +1.25 064 Left -9.00 +0.50 106 Type: SVL Manifest Refraction (Auto) Sphere Cylinder [place] Dist [place] Right -10.00 +1.25 066 20/25 Left -10.50 +2.00 097 20/20 Manifest Refraction #2 Sphere Cylinder [place] Dist VA Right -9.50 +0.75 075 20/20 -2 Left -9.50 +1.25 106 20/20 -2 Final Rx Sphere Cylinder [place] Dist VA Right -9.50 +0.75 075 20/20 -2 Left -9.50 +1.25 106 20/20 -2 Expiration Date: 08/24/2025 Contact Lens Exam Current Contact Lens Rx Brand Base Curve Diameter Sphere Cylinder [place] Addl. Specs Right Precision 1 for Astigmatism One Day 8.5 14.5 -8.00 -1.25 160 last Rx Left Precision 1 for Astigmatism One Day 8.5 14.5 -8.00 -1.25 020 last Rx Current Contact Lens Rx #2 Brand Base Curve Diameter Sphere Cylinder [place] Addl. Specs Right Acuvue 1 Day Moist for Astigmatism 8.5 14.5 -8.50 -1.25 170 favored old Rx Left Acuvue 1 Day Moist for Astigmatism 8.5 14.5 -8.50 -1.25 180 favored old Rx Current Contact Lens Rx #3 (Trial Lens, Ordered) Brand Base Curve Diameter Sphere Cylinder [place] Addl. Specs Right Acuvue 1 Day Moist for Astigmatism 8.5 14.5 -8.00 -0.75 170 Left Acuvue 1 Day Moist for Astigmatism 8.5 14.5 -7.50 -1.25 020 VISIT DIAGNOSES 1. Myopia of both eyes 2. Regular astigmatism of both eyes 3. Retinal drusen of both eyes ASSESSMENT AND PLAN: A refraction was performed at today's examination. Discussed refractive error at length as well as options for spectacles. Adjustment to new glasses reviewed. Prescription(s) for single vision glasses given to patient today. A soft contact lens evaluation and refit was performed today. The patient was fit with new lenses due to discomfort. New trials to be ordered for patient today. Instruction regarding Daily replacement reviewed today. Risks of contact lens wear including redness, vision loss and possible permanent blindness reviewed. Patient will call to finalize the Rx based on trials received. Retinal drusen stable. Continue annual dilated exam. Explained the diagnoses, plan, and follow up with the patient and they expressed understanding. Patient expressed understanding of the importance of proper follow up care. Tobacco Use: Low Risk (08/24/2024) Patient History Smoking Tobacco Use: Never Smokeless Tobacco Use: Never Passive Exposure: Never The patient has been counseled on tobacco cessation: Not Applicable Follow up for Comprehensive Exam, Print Glasses Rx. Electronically signed by: Smita Dallas OD 08/24/2024 10:01 AM [1] Allergies Allergen Reactions Oxycodone Other - please document in the comment field Any oxy drugs Latex Rash Other Other - please document in the comment field Latex - Rash [2] Past Medical History: Diagnosis Date Anxiety Breakthrough bleeding 09/19/2019 Chronic constipation Chronic migraine without aura, not intractable, without status migrainosus Chronic migraine without aura Depression Food intolerance Hypocortisolemia (CMS/HCC) IBS (irritable bowel syndrome) constipation and diarrhea Inflammatory bowel disease Motion sickness Pain of toe of right foot 10/28/2018 PCOS (polycystic ovarian syndrome) 2023 Personal history of other diseases of the digestive system History of gastroesophageal reflux (GERD) Personal history of other diseases of the musculoskeletal system and connective tissue History of scoliosis Personal history of other mental and behavioral disorders History of anxiety PONV (postoperative nausea and vomiting) Scoliosis Situational anxiety 10/28/2018 Visual impairment [3] Past Surgical History: Procedure Laterality Date COLONOSCOPY 10/2020 IBS FOOT SURGERY ORAL SURGERY N/A wisdom teeth [4] Family History Problem Relation Name Age of Onset Fibroids Mother Stomach problems Mother ulcer Depression Father Darwin Saavedra Gallbladder disease Father Darwin Chapine CHRISTIANO disease Father Darwin Saavedra Hypertension Father Darwin Raeburne Migraines Father Darwin Raeburne Hyperlipidemia Father Darwin Saavedra Alcohol abuse Father Darwin Saavedra Mental illness Father Darwin Saavedra Suicide Father Darwin Saavedra Bipolar depression Sister Diverticulosis Maternal Grandmother Stroke Paternal Grandmother Ada Shelburne Stroke Paternal Grandfather Stroke Other Crohn's disease Other cousin Depression Sister Bea Tavarese Mental illness Sister Bea Saavedra [5] Social History Tobacco Use Smoking status: Never Passive exposure: Never Smokeless tobacco: Never Vaping Use Vaping status: Never Used Substance Use Topics Alcohol use: Yes Comment: 5 drinks/week Drug use: No Comment: Drug use: Does not use illicit drugs documented in this encounter Plan of Treatment Upcoming Encounters Date Type Department Care Team (Late st Contact Info) Description 09/27/2025 8:15 AM EDT Office Visit [facility] [address] [place] [address] [place] [address] Smita Dallas, OD [address] [place] [address] documented as of this encounter Visit Diagnoses Diagnosis Myopia of both eyes- Primary Regular astigmatism of both eyes Retinal drusen of both eyes documented in this encounter Additional Health Concerns Assessment Noted Time A fall risk assessment has been complete d for the patient 08/25/2023 8:12 AM EDT A Body Mass Index follow-up plan has been documented for the patient 08/25/2023 8:45 AM EDT documented as of this encounter Care Teams Glazier Artist Relationship Specialty Start Date End Date Tracy Aldrich APRN [address] [place] [address] PCP - General 05/12/22 documented as of this encounter
--- OUTSIDE RECORDS SUMMARY | 2024-10-05 11:28 | XMS_ITS | Clinical Summary ---
Author Organization [facility] Address [address] [place] [address] Care Team Providers Care Disposal Man Name Role Phone Tracy Aldrich APRN Primary [...] on 08/24/2024 cholecalciferol (Vitamin D-3) 1.25 MG (92097 UT) capsule Take 1 capsule (50,000 Units) [...] Type Department Care Team Description 08/31/2024 Telephone [facility] [address] [facility] [place] [address] Smita [place], DEREK 08/24/2024 8:30 AM EDT Office Visit [facility] [address] [facility] [place] [address] Smita [place], OD Myopia of both eyes (Primary Dx); Regular astigmatism of both eyes; Retinal drusen of both eyes 08/24/2024 Travel 08/05/2024 Refill [facility] Team [facility] [address] [place] [address] Tracy Aldrich APRN Generalized anxiety disorder from Last 3 Months Immunizations Immunization Administration Dates Next Due HPV 9-Valent 09/15/2022,05/16/2022,03/18/2022 Hep B, adult 09/17/2018,04/20/2018,03/18/2018 Influenza, Unspecified 11/16/2019,11/12/2018 Influenza, injectable, quadr ivalent, preservative free 12/19/2022,01/09/2022,12/05/2020 Influenza, recombinant, quad rivalent, injectable, preservative free 09/19/2022 Influenza, seasonal, injecta ble, preservative free 12/09/2023 MMR 05/24/2018,04/20/2018 Pfizer Covid-19 Vaccine 12y+ , Manas Protein, PF, Renzo-Sucrose 12/19/2022 [employer] COVID-19 Vac cine (Purple Cap) 12+ 03/29/2020,03/08/2020 [...] place to sleep or slept in a penitentiary (including now)? No 04/27/2023 Utilities Answer Date [...] Description 09/27/2025 8:15 AM EDT Office Visit [facility] [address] [facility] [place] [address] Smita [place], OD [address] [facility] [address] [address] Health Maintenance Due Date Last Done Comments [facility]-HIV Screening 1993 [facility]-Hepatitis C Screening 1993 [facility]-Infant/Child/Adol SDOH Screenings 1993 [facility]- SDOH Screenings 2011 [facility]-Adult SDOH Screenings 2011 [id number] Vaccine ( season) 2023 12/19/2022, 12/07/2020, 03/29/2020, [...] 2:36 PM EST) Case Report Cytology Case: [id number] Authorizing Provider: Marilynn Quintana APRN, Collected: 03/18/2022 1436 DNP Ordering Location: Medical Office Building Received: 03/18/2022 1603 Obstetrics and Gynecology First Screen: Chio Rangel Specimen: ThinPrep Pap Test, Liquid-Based Cervical/Vaginal, CERVICAL/VAGINAL 03/24/2022 4:21 PM EST [facility] Interpretation NEGATIVE FOR INTRAEPITHELIAL LESION OR MALIGNANCY 03/24/2022 4:21 PM EST [facility] at 1621 EST Specimen Adequacy Satisfactory for evaluation; endocervical/hernandez sformation zone component present. Obscuring inflammation. 03/24/2022 4:21 PM EST [facility] Cervical cytology is a screening test [...] results is suggested (please call Microbiology at [phone] for results). 03/24/2022 4:21 PM EST [facility] Menstrual Status Cyclic 03/24/19 4:21 PM EST [facility] Contraceptive History Not Applicable 03/24/2022 4:21 PM EST [facility] Screening Type Routine Screen 2022 4:21 PM EST [facility] High Risk? No 03/24/2022 4:21 PM EST [facility] HPV Testing Requested? No HPV Testing Requested 03/24/2022 4:21 PM EST [facility] Previous Cancer History No 03/24/2022 4:21 PM EST [facility] Clinical Information Z01.419 - Well woman exam with routine gynecological exam [ICD-10-CM] 03/24/2022 4:21 PM EST [facility] Last Menstrual Period 02/20/2022 03/24/2022 4:21 PM EST [facility] Swab Vaginal and cervical cytologic material / Unknown Non-blood Collection / Unknown 03/18/2022 2:36 PM EST 03/18/2022 4:03 PM EST Marilynn Quintana APRN, DNP LAB CYTOLOGY ORDERABL ES Final Result [facility] [address] [place] [phone] from Last 3 Months or Most Recently Relevant to Health Maintenance Insurance [employer] Care Teams Disposal Man Relationship Specialty Start Date End Date Tracy Aldrich APRN [address] [place] [phone] PCP - General 05/12/22
--- OUTSIDE RECORDS SUMMARY | 2024-10-05 11:28 | XMS_ITS | Encounter Summary ---
Author Organization [facility] Address [address] [place] [address] Care Team Providers Care Dividing Machine Operator Helper Name Role Phone Tracy Aldrich APRN Primary [...] place to sleep or slept in a long-term (including now)? No 04/27/2023 Utilities Answer Date [...] Description 09/27/2025 8:15 AM EDT Office Visit [facility] [address] [facility] [place] [address] Smita aDllas, OD [address] [facility] [address] [place] [address] documented as of this encounter Visit Diagnoses Not on filedocumented in this encounter Additional Health Concerns Assessment Noted Time A fall risk assessment has been complete d for the patient 08/25/2023 8:12 AM EDT A Body Mass Index follow-up plan has been documented for the patient 08/25/2023 8:45 AM EDT documented as of this encounter Care Teams Dividing Machine Operator Helper Relationship Specialty Start Date End Date Tracy Aldrich APRN [address] [place] [phone] PCP - General 05/12/22 documented as of this encounter
--- OUTSIDE RECORDS SUMMARY | 2024-10-05 11:28 | XMS_ITS | Encounter Summary ---
Author Organization [facility] Address [address] [place] [address] Care Team Providers Care Celery Tier Name Role Phone Liss Tram Salgado APRN Primary Care Provider Tracy Aldrich APRN Primary Care Provider Encounter Details Date Type Department Care Team (Late st Contact Info) Description 12/05/2020 Lab Requisition [facility] [address] [place] [address] Flavio James MD [address] [place] [address] Radha Social History Tobacco Use Types Packs/Day [...] [facility] [address] [place] [address] Smita [place], OD [address] [place] [address] documented as of this encounter Procedures Procedure Name Priority Date/Time Associated Diagnosis Comments SURGICAL PATHOLOGY EXAM Routine 12/06/2020 5:51 PM EDT Melena documented in this encounter Results * Surgical Pathology Exam (12/06/2020 5:51 PM EDT) Case Report Surgical Pathology Case: [id number] Authorizing Provider: Flavio James MD Collected: Ordering Location: [facility] Received: 12/05/2020 1309 Pathologist: Linda Dhillon MD Specimen: Rectum, Rectal Bx 12/06/2020 5:51 PM EDT [facility] Final Diagnosis Rectum, biopsy: Normal colonic mucosa with lymphoid follicle Mucosal edema and focal minor superficial petechial hemorrhage (consistent with preparation artifact) 12/06/2020 5:51 PM EDT [facility] at 1751 EDT Clinical Information Hematochezia 12/06/2020 5:51 PM EDT [facility] Gross Description A. RECTAL BX The specimen is received in formalin labeled rectal BX , and consists of three colon-brown soft tissue fragments ranging from 0.2-0.3 cm in greatest dimension. Entirely submitted in cassette A1. Viri Houston 12/06/2020 5:51 PM EDT [facility] Note: A resident was involved in the service. I attest I examined the relevant preparations for the specimens and confirmed the diagnosis or interpretation. 12/06/2020 5:51 PM EDT [facility] Tissue Rectum structure / Unknown 12/05/2020 1:09 PM EDT us Flavio James MD LAB PATHOLOGY ORDERABLES Final Result [facility] [address] [place] [address] documented in this encounter Visit Diagnoses Diagnosis Melena Blood in stool documented in this encounter Additional Health Concerns Assessment Noted Time A fall risk assessment has been complete d for the patient 11/13/2020 12:24 PM EDT documented as of this encounter Care Teams Celery Tier Relationship Specialty Start Date End Date Tarm Leija APRN [address] [place] [phone] PCP - General 07/06/20 05/11/22 Tracy Aldrich APRN [address] [place] [phone] PCP - General 05/12/22 documented as of this encounter
--- OUTSIDE RECORDS SUMMARY | 2024-10-05 11:28 | XMS_ITS | Clinical Summary ---
Author Organization [facility] Address [address] [place] [id number] Care Team Providers Care Farm Supervisor Name Role Phone Jannette Armenta MD Primary [...] patient's age to complete this topic Insurance [facility] PPO Member Subscriber Plan / Payer (Ef fective 2018-Present) Name:Zayda Perez Relation to Subscriber:Self Name:Zayda Perez Payer ID:[id number] (NAIC) Type:Not on file Address: [facility] [id number] [place] [id number] Care Teams Farm Supervisor Relationship Specialty Start Date End Date Jannette Armenta MD [address] [place] [address] PCP - General Internal Medicine 02/07/16
--- OUTSIDE RECORDS SUMMARY | 2024-10-05 11:28 | XMS_ITS | Encounter Summary ---
Author Organization [facility] Address [address] [place] [address] Care Team Providers Care Tankerman Name Role Phone Tracy Aldrich APRN Primary Care Provider Encounter Details Date Type Department Care Team (Late st Contact Info) Description 08/31/2024 Telephone [facility] [address] [facility] [place] [address] Smita [place], OD [address] [address] Social History Tobacco Use Types [...] place to sleep or slept in a residential (including now)? No 04/27/2023 Utilities Answer Date [...] Description 09/27/2025 8:15 AM EDT Office Visit [facility] [address] [place] [address] Smita [place], OD [address] [place] [address] documented as of this encounter Visit Diagnoses Not on filedocumented in this encounter Additional Health Concerns Assessment Noted Time A fall risk assessment has been complete d for the patient 08/25/2023 8:12 AM EDT A Body Mass Index follow-up plan has been documented for the patient 08/25/2023 8:45 AM EDT documented as of this encounter Care Teams Tankerman Relationship Specialty Start Date End Date Tracy Aldrich APRN [address] [place] [address] PCP - General 05/12/22 documented as of this encounter
--- OUTSIDE RECORDS SUMMARY | 2024-10-05 11:28 | XMS_ITS | Encounter Summary ---
Author Organization [facility] Address [address] [place] [address] Care Team Providers Care General Production Manager Name Role Phone Tracy Aldrich APRN Primary Care Provider Reason for Visit * Reason Comments Med Refill Encounter Details Date Type Department Care Team (Late st Contact Info) Description 08/05/2024 Refill [facility] [address] [place] [address] Tracy Aldrich APRN [address] [place] [address] Generalized anxiety disorder Social History [...] place to sleep or slept in a fci (including now)? No 04/27/2023 Utilities Answer Date [...] encounter Miscellaneous Notes * Telephone Encounter - Giuliana Bansal, PharmD - 08/09/2024 12:33 PM EDT 1 medication(s) has been approved per protocol. Appt requested to be scheduled by [facility]. Patient must schedule an appointment and be seen in clinic for additional refills. documented in this encounter Plan of Treatment Upcoming Encounters Date Type Department Care Team (Late st Contact Info) Description 09/27/2025 8:15 AM EDT Office Visit [facility] [address] [facility] [place] [address] Smita [place], OD [address] [facility] [address] [place] [address] documented as of this encounter Visit Diagnoses Diagnosis Generalized anxiety disorder documented in this encounter Additional Health Concerns Assessment Noted Time A fall risk assessment has been complete d for the patient 08/25/2023 8:12 AM EDT A Body Mass Index follow-up plan has been documented for the patient 08/25/2023 8:45 AM EDT documented as of this encounter Care Teams General Production Manager Relationship Specialty Start Date End Date Tracy Aldrich APRN [address] [place] [phone] PCP - General 05/12/22 documented as of this encounter
[2024-10-05 11:56] LABS: Hematocrit 36.7 % (37.0-47.0); Hemoglobin 12.5 g/dL (12.2-16.2); Immature Granulocytes % 0.1 %; Mean Corpuscular HGB Conc 34.1 g/dL (31.8-35.4); Mean Corpuscular Hemoglobin 29.7 pg (27.0-31.2); Mean Corpuscular Volume 87.2 fl (81-99); Nucleated Red Blood Cells % 0 %; Platelet Count 166 K/mm3 (142-424); Red Blood Count 4.21 M/mm3 (4.20-5.40); Red Cell Distribution Width-SD 39.1 fL; White Blood Count 9.0 K/mm3 (4.8-10.8)
[2024-10-05 13:24] LABS: Hepatitis C Ab Qual. W/ RFX NEGATIVE (Negative)
[2024-10-05 15:39] LABS: RPR W/RFX Titers Nonreactive (Nonreactive)
[2024-10-06 08:14] LABS: Hepatitis B Surface Antigen Negative (Negative)
[2024-10-06 09:12] LABS: Rubella Antibodies, IgG 8.23 index (Immune >0.99)
== END 2024-10-05 23:59 | disposition home or self-care (01) ==
LOC: LAB 11:24
PROVIDERS: PCP Family Medicine; Visit Provider Obstetrics & Gynecology
DX: E28.2 Polycystic ovarian syndrome (principal)
CPT/HCPCS: 36415; 85025; 86592; 86762; 86803; 86850; 87086; 87340; 87389

== ENCOUNTER 2024-10-20 13:55 | Outpatient (CLI) | payer BC, SELFPAY ==
--- OUTSIDE RECORDS SUMMARY | 2023-11-11 07:15 | XMS_ITS ---
Author Organization [facility] Address [address] [facility] [address] [place] [phone] Care Team Providers Care Supplier Manager Name Role Phone vOi Lorenz Primary Care Provider [phone] Allergies Allergen (clinical drug ingredient) Drug/Non Drug [...] Provider Diagnosis [facility] [address] [place] [phone] 11/11/2023 Ovi Lorenz Iritis H20.9 ; Acne [...] rt progress, Reason: Progress Notes * MINNIE MONITELEDOB:[birth year] (29 yo F)Acc No.[id number]:11/11/2023 Progress Notes Patient: JORDON JOHNSON Provider: Hamilton Lorenz M.D. :1995 A ge:28 Y S ex:Female Date:11/11/2023 Address:[address] [place] [address] Subjective: * Chief Complaints: * 1 . To get established. * HPI: H PI: 28 year old female presents with c/o Patient is here today for?Pt here to establish care, previously seen by Dariana Aldrich APRN in [place]. Pt states she was recently dx with Iritis by Dr. Kasey farmer [facility] in [place] a nd was advised to see a Vaccine Specialist, pt unsure if she needs referral . * ROS: D ERMATOLOGY: no R ivis. n o H noble. G ASTROENTEROLOGY: no N ausea. n o V omiting. U ROLOGY: no D ifficulty urinating. n o B lood in urine. * Medical History: I rritable Bowel Syndrome, Anxiety, PCOS. * Pressure Tester History: H /O Last pap smear date [...] * Images: Billing Information: * Visit Code: 37460 Office Visit, New Pt., Level 3. * Procedure Codes: * Electronic signature of Palak Lorenz MD on 10/25/2024 at 10:16 AM EDT Sign off status: Pending * Provider: Hamilton Lorenz M.D. Date: 0 11/11/2023 Generated for Flor rice/Marivel/Andriyitting on: 10/25/2024 10:16 AM EDT History and Physical Notes * HPI (History of Present Illness) Category Sub-Category Detail Notes Category Not es HPI Patient is here today for Pt her e to establish care, previously seen by Dariana Aldrich APRN in [place]. Pt states she was recently dx with Iritis by Dr. Kasey Urbina at [facility] in [place] and was advised to see a Vaccine Specialist, pt unsure if she needs referral Examination Category Sub-Category Detail Notes Category Not es General Examination Heart: RSR Lungs: clear to auscultatio n Extremities: no leg edema General Appearance: NAD Skin: scattered comedones, papules and a few pustules on face Peripheral pulses: normal (2+) bilatera lly
--- OUTSIDE RECORDS SUMMARY | 2024-03-02 07:15 | XMS_ITS ---
Author Organization [facility] Address [address] [place] [phone] Care Team Providers Care Senior Ui Developer Name Role Phone Ovi Lorenz Primary Care [...] growth Performing Lab: Notes/Report: Test performed by [employer] [address] [place] [address] , [address], [place] [address] Alcon Jhaveri MD, Home Help Aide CLIA: [id number] Specimen Source Urine - Void Culture, Urine See Below Final Report : No growth REASON FOR VISIT [facility] f/u Medications Medication SIG (Take, Route, Fr [address] [place] [phone] 03/02/2024 Ovi Lorenz Urinary tract infection, site [...] * TIANA LISAJEFEJOHANNAOB:[birth year] (29 yo F)Acc No.[id number]:03/02/2024 Progress Notes Patient: JORDON JOHNSON Provider: Hamilton Lorenz M.D. :1995 A ge:28 Y S ex:Female Date:03/02/2024 Address:[address] [place] [address] [place], [place] Subjective: * Chief Complaints: * 1 . [facility] f/u. * HPI: H PI: 28 year old female presents with c/o Here for follow up on:?02/26/2024 [facility] visit. Pt went to [facility] for burning with urination, urgency and lower [...] * Images: Billing Information: * Visit Code: 60568 Office Visit, Est Pt., Level 3. * Procedure Codes: 79852 Urinalysis, no micro. * Electronic signature of Palak Lorenz MD on 10/25/2024 at 10:16 AM EDT Sign off status: Pending * Provider: Hamilton Lorenz M.D. Date: 0 03/02/2024 Generated for Flor rice/Marivel/eTransmitting on: 0 10/25/2024 10:16 AM EDT History and Physical Notes * HPI (History of Present Illness) Category Sub-Category Detail Notes Category Not es HPI Here for follow up on: 5 [facility] visit. Pt went to [facility] for burning with urination, urgency and lower [...]
--- OUTSIDE RECORDS SUMMARY | 2024-04-13 05:45 | XMS_ITS ---
[facility] Address [address] [place] [phone] Care Team Providers Care Foil Spinner Name Role Phone Ovi Lorenz Primary Care Provider Maite Webster Unavailable [phone] Allergies Allergen (clinical drug ingredient) Drug/Non Drug [...] growth Performing Lab: Notes/Report: Test performed by [facility], [employer] [address] [place] [address] , [address], [place] [address] Alcon Jhaveri MD, Casing Splitter CLIA: [id number] Specimen Source Urine - Void Culture, Urine [...] Provider Diagnosis [facility] [address] [phone] 04/13/2024 Maite Webster Dysuria R30.0 Assessments Encounter [...] * MINNIE MONTIELEDOB:[birth year] (29 yo F)Acc No.[id number]:04/13/2024 Progress Notes Patient: JORDON JOHNSON Provider: ARNOLD Guillory :1995 A ge:28 Y S ex:Female Date:04/13/2024 Address:[address] [place], [place] [phone] Pcp:Ovi Lorenz Subjective: * Chief Complaints: * [...] * Images: Billing Information: * Visit Code: 61919 Office Visit, Est Pt., Level 3. * Procedure Codes: 13388 Urinalysis, no micro. 3074F SYST BP LT 130 MM HG. 3078F DIAST BP < 80 MM HG. * Electronic signature of ARNOLD Stanley on 10/25/2024 at 10:17 AM EDT Sign off status: Pending * Provider: ARNOLD Guillory Date: 0 04/13/2024 Generated for Flor rice/Marivel/Diana on: 0 10/25/2024 10:17 AM EDT History and Physical Notes * [...]
--- OUTSIDE RECORDS SUMMARY | 2024-10-25 10:16 | XMS_ITS | Patient Health Record ---
Author Organization [facility] Address [address] [facility] [address] [place] [address] Care Team Providers Care Housing Property Manager Name Role Phone Piper Chiu Unavailable [phone] Allergies Allergen (clinical drug ingredient) Drug/Non Drug [...]
--- OUTSIDE RECORDS SUMMARY | 2024-10-25 10:16 | XMS_ITS | Encounter Summary ---
Author Organization Healthcare Address [address] [place] [address] Care Team Providers Care Mechanical Maintenance Supervisor Name Role Phone Liss Tram Salgado APRN Primary Care Provider Tracy Aldrich APRN Primary Care Provider Encounter Details Date Type Department Care Team (Late st Contact Info) Description 12/05/2020 Lab Requisition [facility] [address] [place] [address] Flavio James MD [address] [place] [address] Radha Social History Tobacco Use Types Packs/Day [...] Description 09/27/2025 8:15 AM EDT Office Visit [facility] [address] [place] [address] Smita Dallas, OD [address] [place] [address] documented as of this encounter Procedures Procedure Name Priority Date/Time Associated Diagnosis Comments SURGICAL PATHOLOGY EXAM Routine 12/06/2020 5:51 PM EDT Melena documented in this encounter Results * Surgical Pathology Exam (12/06/2020 5:51 PM EDT) Case Report Surgical Pathology Case: [id number] Authorizing Provider: Flavio James MD Collected: Ordering Location: [facility] Lab Received: 12/05/2020 1309 Pathologist: Linda Dhillon MD Specimen: Rectum, Rectal Bx 12/06/2020 5:51 PM EDT [facility] Final Diagnosis Rectum, biopsy: Normal colonic mucosa with lymphoid follicle Mucosal edema and focal minor superficial petechial hemorrhage (consistent with preparation artifact) 12/06/2020 5:51 PM EDT [facility] at 1751 EDT Clinical Information Hematochezia 12/06/2020 5:51 PM EDT [facility] Gross Description A. RECTAL BX The specimen is received in formalin labeled rectal BX , and consists of three colon-brown soft tissue fragments ranging from 0.2-0.3 cm in greatest dimension. Entirely submitted in cassette A1. Viri Houston 12/06/2020 5:51 PM EDT [facility] Note: A resident was involved in the service. I attest I examined the relevant preparations for the specimens and confirmed the diagnosis or interpretation. 12/06/2020 5:51 PM EDT [facility] Tissue Rectum structure / Unknown 12/05/2020 1:09 PM EDT us Flavio James MD LAB PATHOLOGY ORDERABLES Final Result [facility] [address] [place] [address] documented in this encounter Visit Diagnoses Diagnosis Melena Blood in stool documented in this encounter Additional Health Concerns Assessment Noted Time A fall risk assessment has been complete d for the patient 11/13/2020 12:24 PM EDT documented as of this encounter Care Teams Mechanical Maintenance Supervisor Relationship Specialty Start Date End Date Tram Leija APRN [address] [place] [phone] PCP - General 07/06/20 05/11/22 Tracy Aldrich APRN [address] [place] [phone] PCP - General 05/12/22 documented as of this encounter
--- OUTSIDE RECORDS SUMMARY | 2024-10-25 10:16 | XMS_ITS | Clinical Summary ---
Author Organization [facility] Address [address] [place] [id number] Care Team Providers Care Computer Installation Engineer Name Role Phone Jannette Armenta MD Primary [...] patient's age to complete this topic Insurance [facility] PPO Member Subscriber Plan / Payer (Ef fective 2018-Present) Name:Zayda Perez Relation to Subscriber:Self Name:Zayda Perez Payer ID:[id number] (NAIC) Type:Not on file Address: [facility] [address] [place] [id number] Care Teams Computer Installation Engineer Relationship Specialty Start Date End Date Jannette Armenta MD [address] [place] [address] PCP - General Internal Medicine 02/07/16
--- OUTSIDE RECORDS SUMMARY | 2024-10-25 10:17 | XMS_ITS | Encounter Summary ---
Author Organization Healthcare Address [address] [place] [address] Care Team Providers Care Drug And Alcohol Counsellor Name Role Phone Tracy Aldrich APRN Primary Care Provider Encounter Details Date Type Department Care Team (Late st Contact Info) Description 08/31/2024 Telephone [facility] [address] [facility] [place] [address] Smita Dallas, OD [address] [facility] [address] [place] [address] Social History Tobacco Use Types Packs/Day [...] Description 09/27/2025 8:15 AM EDT Office Visit [facility] [address] [place] [address] Smita Dallas, OD [address] [place] [address] documented as of this encounter Visit Diagnoses Not on filedocumented in this encounter Additional Health Concerns Assessment Noted Time A fall risk assessment has been complete d for the patient 08/25/2023 8:12 AM EDT A Body Mass Index follow-up plan has been documented for the patient 08/25/2023 8:45 AM EDT documented as of this encounter Care Teams Drug And Alcohol Counsellor Relationship Specialty Start Date End Date Tracy Aldrich APRN [address] [place] [address] PCP - General 05/12/22 documented as of this encounter
--- OUTSIDE RECORDS SUMMARY | 2024-10-25 10:17 | XMS_ITS | Patient Health Record ---
[facility] [address] [place] [id number] Care Team Providers Care Clinical Pharmacy Manager Name Role Phone Ovi Lorenz Primary Care Provider [phone] Maite Webster Unavailable [phone] Allergies Allergen (clinical drug ingredient) Drug/Non Drug [...] growth Performing Lab: Notes/Report: Test performed by [facility] [address] [place] [address] , [place] [id number] Alcon Jhaveri MD, Tinning Equipment Tender CLIA: [id number] Specimen Source Urine - Void Culture, Urine See Below Final Report : No growth P-Culture, Urine Reviewed date:04/15/2024 01:30:36 PM Interpretation: No growth Performing Lab: Notes/Report: Test performed by [facility] [address] [place] [address] , [address], [place] [id number] Alcon Jhaveri MD, Tinning Equipment Tender CLIA: [id number] Specimen Source Urine - Void Culture, Urine See Below Final Report : No growth Urinalysis - Inhouse Reviewed date:04/13/2024 11:24:01 AM Interpretation: Performing Lab: Notes/Report: Color/Clarity yellow/cloudy Leuk 2+ Nitrite neg Urobili 3.2 Protein neg pH 7.0 Blood trace-intact Sp. Gr. 1.020 Ketone neg Bili neg Gluc neg IRAIDA Reviewed date:11/04/2023 10:00:54 AM Interpretation: Performing Lab: Notes/Report: Reason For Referral No Information Medications Medication [...] 04/13/2024 Encounters Encounter Location Date Provider Diagnosis [facility] [facility] [address] [place] [id number] 11/11/2023 Ovi [place] Iritis H20.9 ; Acne vulgaris L70.0 and PCOS (polycystic ovarian syndrome) E28.2 [facility] [facility] [address] [place] [id number] 03/02/2024 Ovi [place] Urinary tract infection, site not specified N39.0 and Unspecified Escherichia coli [E. coli] as the cause of diseases classified elsewhere B96.20 [facility] [facility] [address] [place], [place] [phone] 04/13/2024 Maite Larrydy Dysuria R30.0 [facility] [facility] [address] [place], [place] [phone] 04/15/2024 Maitedionna Webster Assessments Encounter Date Diagnosis (ICD Code) Assessment [...] Coverage Start Date Coverage End Date [facility] [address] [place] [address] [id number] JORDON MONTIEL Self - patient is the insured Medical (General) History Medical History History ICD Code Irritable Bowel Syndrome Anxiety PCOS Surgical History Surgery Date(Month/Year) Foot - Plantar wart 2019
--- OUTSIDE RECORDS SUMMARY | 2024-10-25 10:17 | XMS_ITS | Clinical Summary ---
Author Organization [facility] Address [address] [place] [address] Care Team Providers Care Chemical Dependency Professional Name Role Phone Tracy Aldrich APRN Primary [...] on 08/24/2024 cholecalciferol (Vitamin D-3) 1.25 MG (35362 UT) capsule Take 1 capsule (50,000 Units) [...] Type Department Care Team Description 08/31/2024 Telephone [facility] [address] [facility] [place] [address] Smita Dallas, DEREK 08/24/2024 8:30 AM EDT Office Visit [facility] [address] [facility] [place] [address] Smita Dallas, OD Myopia of both eyes (Primary Dx); Regular astigmatism of both eyes; Retinal drusen of both eyes 08/24/2024 Travel 08/05/2024 Refill [facility] [address] [place] [address] Tracy Aldrich APRN Generalized anxiety disorder from Last 3 Months Immunizations Immunization Administration Dates Next Due HPV 9-Valent 09/15/2022,05/16/2022,03/18/2022 Hep B, adult 09/17/2018,04/20/2018,03/18/2018 Influenza, Unspecified 11/16/2019,11/12/2018 Influenza, injectable, quadr ivalent, preservative free 12/19/2022,01/09/2022,12/05/2020 Influenza, recombinant, quad rivalent, injectable, preservative free 09/19/2022 Influenza, seasonal, injecta ble, preservative free 12/09/2023 MMR 05/24/2018,04/20/2018 Pfizer Covid-19 Vaccine 12y+ , Manas Protein, PF, Renzo-Sucrose 12/19/2022 eSoft COVID-19 Vac cine (Purple Cap) 12+ 03/29/2020,03/08/2020 [...] place to sleep or slept in a half-way (including now)? No 04/27/2023 Utilities Answer Date [...] Description 09/27/2025 8:15 AM EDT Office Visit [facility] [address] [facility] [place] [address] Smita Dallas, OD [address] [facility] [address] [address] Health Maintenance Due Date Last Done Comments [facility]-HIV Screening 1993 [facility]-Hepatitis C Screening 1993 [facility]-/Child/Adol SDOH Screenings 1993 [facility]- SDOH Screenings 2011 [facility]-Adult SDOH Screenings 2011 [id number] Vaccine ( season) 2023 12/19/2022, 12/07/2020, 03/29/2020, [...] 2:36 PM EST) Case Report Cytology Case: [id number] Authorizing Provider: Marilynn Quintana APRN, Collected: 03/18/2022 1436 DNP Ordering Location: Medical Office Building Received: 03/18/2022 1603 Obstetrics and Gynecology First Screen: Chio Rangel Specimen: ThinPrep Pap Test, Liquid-Based Cervical/Vaginal, CERVICAL/VAGINAL 03/24/2022 4:21 PM EST [facility] Interpretation NEGATIVE FOR INTRAEPITHELIAL LESION OR MALIGNANCY 03/24/2022 4:21 PM EST [facility] at 1621 EST Specimen Adequacy Satisfactory for evaluation; endocervical/hernandez sformation zone component present. Obscuring inflammation. 03/24/2022 4:21 PM EST [facility] Cervical cytology is a screening [...] results is suggested (please call Microbiology at [phone] for results). 03/24/2022 4:21 PM EST [facility] Menstrual Status Cyclic 03/24/19 4:21 PM EST [facility] Contraceptive History Not Applicable 03/24/2022 4:21 PM EST [facility] Screening Type Routine Screen 2022 4:21 PM EST [facility] High Risk? No 03/24/2022 4:21 PM EST [facility] HPV Testing Requested? No HPV Testing Requested 03/24/2022 4:21 PM EST [facility] Previous Cancer History No 03/24/2022 4:21 PM EST [facility] Clinical Information Z01.419 - Well woman exam with routine gynecological exam [ICD-10-CM] 03/24/2022 4:21 PM EST [facility] Last Menstrual Period 02/20/2022 03/24/2022 4:21 PM EST [facility] Swab Vaginal and cervical cytologic material / Unknown Non-blood Collection / Unknown 03/18/2022 2:36 PM EST 03/18/2022 4:03 PM EST Marilynn Quintana APRN, DNP LAB CYTOLOGY ORDERABL ES Final Result [facility] [address] [place] [id number] from Last 3 Months or Most Recently Relevant to Health Maintenance Insurance EYEMED Care Teams Chemical Dependency Professional Relationship Specialty Start Date End Date Tracy Aldrich APRN [address] [place] [phone] PCP - General 05/12/22
== END 2024-10-20 23:59 ==
LOC: LAB.DROPOF 10-25 09:45
PROVIDERS: PCP Obstetrics & Gynecology; Visit Provider Obstetrics & Gynecology
DX: R39.9 Unspecified symptoms and signs involving the genitourinary system (principal)
CPT/HCPCS: 87086; 87088; 87186

== ENCOUNTER 2024-11-09 10:00 | Outpatient (CLI) | payer BC, SELFPAY ==
--- OUTSIDE RECORDS SUMMARY | 2023-11-11 07:15 | XMS_ITS ---
Author Organization [facility] Address [address] [place] [phone] Care Team Providers Care Marine Equipment Preservation Inspector Name Role Phone Ovi Lorenz Primary Care Provider [phone] Allergies Allergen (clinical drug ingredient) Drug/Non Drug [...] Risk Notes Problem Polycystic ovary syndrome (disorder) (261413455) PCOS (polycystic ovarian syndrome) (E28.2) Active confirmed Vital Signs Blood pressure systolic 112 mm Hg 11/11/19 24 Blood pressure diastolic 70 mm Hg 024 Heart Rate 77 /min 11/11/2023 Height 63 in 11/11/2023 Weight 115.4 lbs 11/11/2023 BMI 20.44 kg/m2 11/11/2023 Encounters Encounter Location Date Provider Diagnosis [facility] [address] [facility] [address] [place] [phone] 11/11/2023 Ovi Lorenz Iritis H20.9 ; Acne [...] * MINNIE MONTIELEDOB:[birth year] (29 yo F)Acc No.[id number]:11/11/2023 Progress Notes Patient: JORDON JOHNSON Provider: Hamilton Lorenz M.D. :1995 A ge:28 Y S ex:Female Date:11/11/2023 Address:[address] [place] [address] Subjective: * Chief Complaints: * 1 . To get established. * HPI: H PI: 28 year old female presents with c/o Patient is here today for?Pt here to establish care, previously seen by Dariana Aldrich APRN in [place]. Pt states she was recently dx with Iritis by Dr. Kasey farmer [facility] in [place] a nd was advised to see a Plaster Caster, pt unsure if she needs referral . * ROS: D ERMATOLOGY: no R ivis. n o H noble. G ASTROENTEROLOGY: no N ausea. n o V omiting. U ROLOGY: no D ifficulty urinating. n o B lood in urine. * Medical History: I rritable Bowel Syndrome, Anxiety, PCOS. 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 * Procedure Codes: * Electronic signature of Palak Lorenz MD on 11/10/2024 at 10:54 AM EDT Sign off status: Pending * Provider: Hamilton Lorenz M.D. Date: 11/11/2023 Generated for Flor rice/Marivel/Andriyitting on: 11/10/2024 10:54 AM EDT History and Physical Notes * HPI (History of Present Illness) Category Sub-Category Detail Notes Category Not es HPI Patient is here today for Pt her e to establish care, previously seen by Dariana Aldrich APRN in [place]. Pt states she was recently dx with Iritis by Dr. Kasey Urbina at [facility] in [place] and was advised to see a Plaster Caster, pt unsure if she needs referral Examination Category Sub-Category Detail Notes Category Not es General Examination Heart: RSR Lungs: clear to auscultatio n Extremities: no leg edema General Appearance: NAD Skin: scattered comedones, papules and a few pustules on face Peripheral pulses: normal (2+) bilatera lly
--- OUTSIDE RECORDS SUMMARY | 2024-03-02 07:15 | XMS_ITS ---
Author Organization [facility] Address [address] [place] [phone] Care Team Providers Care Specialty Plant Supervisor Name Role Phone Ovi Lorenz Primary Care [...] growth Performing Lab: Notes/Report: Test performed by [employer] [address] [place] [address] , [address], [place] [address] Alcon Jhaveri MD, Clean Up Worker CLIA: [id number] Specimen Source Urine - Void Culture, Urine See Below Final Report : No growth REASON FOR VISIT [facility] f/u Medications Medication SIG (Take, Route, Fr equency, Duration) Notes Start Date End Date Status Bactrim DS 800-160 MG 1 tablet Orally Tw o times a day; Duration: 7 days 03/02/2024 Active ZyrTEC Allergy 10 MG 1 tablet Orally Onc e a day; Duration: 30 day(s) Active Lexapro 10 MG 1 tablet Orally Once a day; Duration: 30 day(s) Active Vital Signs Blood pressure systolic 114 mm Hg 03/02/19 25 Blood pressure diastolic 70 mm Hg 025 Heart Rate 100 /min 03/02/2024 Height 63 in 03/02/2024 Weight 116 lbs 03/02/2024 BMI 20.55 kg/m2 03/02/2024 Encounters Encounter Location Date Provider Diagnosis [facility] [address] [facility] [address] [place] [phone] 03/02/2024 Ovi Lorenz Urinary tract infection, site [...] * TIANA LISAJEFEJOHANNAOB:[birth year] (29 yo F)Acc No.[id number]:03/02/2024 Progress Notes Patient: JORDON JOHNSON Provider: Hamilton Lorenz M.D. :1995 A ge:28 Y S ex:Female Date:03/02/2024 Address:[address] [place] [address] [place] Subjective: * Chief Complaints: * 1 . [facility] f/u. * HPI: H PI: 28 year old female presents with c/o Here for follow up on:?02/26/2024 [facility] visit. Pt went to [facility] for burning with urination, urgency and lower [...] 8:43: 17 AM > pt started on bactrimRadhallCindy jackson 03/04/2024 1:39:36 PM > , Patient informed of normal results. * Procedure Codes: 8 1002 Urinalysis, no micro * Follow Up: v ia phone to report progress * Images: Billing Information: * Visit Code: 65838 Office Visit, Est Pt., Level 3. * Procedure Codes: 84845 Urinalysis, no micro. * Electronic signature of Palak Lorenz MD on 11/10/2024 at 10:54 AM EDT Sign off status: Pending * Provider: Hamilton Lorenz M.D. Date: 0 03/02/2024 Generated for Flor rice/Marivel/eTransmitting on: 0 11/10/2024 10:54 AM EDT History and Physical Notes * HPI (History of Present Illness) Category Sub-Category Detail Notes Category Not es HPI Here for follow up on: 5 [facility] visit. Pt went to [facility] for burning with urination, urgency and lower [...]
--- OUTSIDE RECORDS SUMMARY | 2024-04-13 05:45 | XMS_ITS ---
Author Organization [facility] Address [address] [place] Dash [phone] Care Team Providers Care Ice Delivery Driver Name Role Phone Ovi Lorenz Primary Care Provider Maite Webster Unavailable [phone] Allergies Allergen (clinical drug ingredient) Drug/Non Drug [...] growth Performing Lab: Notes/Report: Test performed by [facility], [facility] [address] [place] [address] , [address], [place] [address] Alcon Jhaveri MD, Miter Sawyer CLIA: [id number] Specimen Source Urine - Void Culture, Urine [...] day(s) Active Vital Signs Blood pressure systolic 110 mm Hg 04/13/19 25 Blood pressure diastolic 70 mm Hg 025 Height 63 in 04/13/2024 Weight 122.0 lbs 04/13/2024 BMI 21.61 kg/m2 04/13/2024 Encounters Encounter Location Date Provider Diagnosis [facility] [address] [phone] 04/13/2024 Maite Webster Dysuria R30.0 Assessments Encounter [...] * MINNIE MONTIELEDOB:[birth year] (29 yo F)Acc No.[id number]:04/13/2024 Progress Notes Patient: JORDON JOHNSON Provider: ARNOLD Guillory :1995 A ge:28 Y S ex:Female Date:04/13/2024 Address:[address] [place], [place] [phone] Pcp:Ovi Lorenz Subjective: * Chief Complaints: * [...] * Images: Billing Information: * Visit Code: 96093 Office Visit, Est Pt., Level 3. * Procedure Codes: 14289 Urinalysis, no micro. 3074F SYST BP LT 130 MM HG. 3078F DIAST BP < 80 MM HG. * Electronic signature of ARNOLD Stanley on 11/10/2024 at 10:55 AM EDT Sign off status: Pending * Provider: ARNOLD Guillory Date: 0 04/13/2024 Generated for Flor rice/Marivel/Diana on: 0 11/10/2024 10:55 AM EDT History and Physical Notes * [...]
--- OUTSIDE RECORDS SUMMARY | 2024-11-10 10:54 | XMS_ITS | Patient Health Record ---
Author Organization [facility] [place] Address [address] [facility] [address] [place] [address] Care Team Providers Care Deputy Director Of Finance Name Role Phone Piper Chiu Unavailable [phone] Allergies Allergen (clinical drug ingredient) Drug/Non Drug Allergy documented on EMR Reaction Allergy Type Onset Date Status oxycodone OXYCODONE (uncoded) Unspecified Allergy 10/29/19 18 Active Reason For Referral No Information Social History Social History Additional Details Category Social Info Options Details Miscellaneous: Caffeine: CAFFEINE USE: 1-3 /day Problems Problem Type SNOMED Code ICD Code Onset Dates Problem Status W/U Status Risk Notes Problem Gynecological examination normal ([id number] ) Cervical smear, as part of routine gynecological examination (Z01.419) 10/26/19 16 Active confirmed Annual without abnormal findings Plan Of Treatment No Information Medical (General) History Medical History History ICD Code Anxiety Urinary Tract Infections Yeast Infections A Routine ABORTIONS: 0 MENSTR FLOW: Moderate GILDESS FE 1.5 1.5-30 MG-MCG ORAL TAB LET, ORAL Surgical History Surgery Date(Month/Year) denies
--- OUTSIDE RECORDS SUMMARY | 2024-11-10 10:54 | XMS_ITS | Clinical Summary ---
Author Organization [facility] Address [address] [place] [id number] Care Team Providers Care Recruiter Name Role Phone Jannette Armenta MD Primary [...] ANNUAL PHYSICAL 01/25/2016 HEPATITIS C SCREENING 01/25/2016 INFLUENZA VACCINE 09/23/2024 TDAP/TD VACCINES (2 - Td or Tdap) 06/20/2027 018 Pneumococcal Vaccine 0-49 Aged Out No longer eligible based on patient's age to complete this topic Insurance [facility] PPO Care Teams Recruiter Relationship Specialty Start Date End Date Jannette Armenta MD [address] [place] [address] PCP - General Internal Medicine 02/07/16
--- OUTSIDE RECORDS SUMMARY | 2024-11-10 10:54 | XMS_ITS | Encounter Summary ---
Author Organization Healthcare Address [address] [place] [address] Care Team Providers Care Electric Refrigerator Preparer Name Role Phone Liss Tram Salgado APRN Primary Care Provider [phone] Tracy Aldrich APRN Primary Care Provider Encounter Details Date Type Department Care Team (Late st Contact Info) Description 12/05/2020 Lab Requisition [facility] [address] [place] [address] lFavio James MD [address] [place] [address] Radha Social History Tobacco Use Types Packs/Day [...] Description 09/27/2025 8:15 AM EDT Office Visit [facility] [address] [place] [address] Smita Dallas, OD [address] [place] [address] documented as of this encounter Procedures Procedure Name Priority Date/Time Associated Diagnosis Comments SURGICAL PATHOLOGY EXAM Routine 12/06/2020 5:51 PM EDT Melena documented in this encounter Results * Surgical Pathology Exam (12/06/2020 5:51 PM EDT) Case Report Surgical Pathology Case: [id number] Authorizing Provider: Flavio James MD Collected: Ordering Location: [facility] Received: 12/05/2020 1309 Pathologist: Linda Dhillon MD Specimen: Rectum, Rectal Bx 12/06/2020 5:51 PM EDT [facility] Final Diagnosis Rectum, biopsy: Normal colonic mucosa with lymphoid follicle Mucosal edema and focal minor superficial petechial hemorrhage (consistent with preparation artifact) 12/06/2020 5:51 PM EDT [facility] at 1751 EDT Clinical Information Hematochezia 12/06/2020 5:51 PM EDT [facility] Gross Description A. RECTAL BX The specimen is received in formalin labeled rectal BX , and consists of three colon-brown soft tissue fragments ranging from 0.2-0.3 cm in greatest dimension. Entirely submitted in cassette A1. Viri Houston 12/06/2020 5:51 PM EDT [facility] Note: A resident was involved in the service. I attest I examined the relevant preparations for the specimens and confirmed the diagnosis or interpretation. 12/06/2020 5:51 PM EDT [facility] Tissue Rectum structure / Unknown 12/05/2020 1:09 PM EDT us Flavio James MD LAB PATHOLOGY ORDERABLES Final Result [facility] [address] [place] [address] documented in this encounter Visit Diagnoses Diagnosis Melena Blood in stool documented in this encounter Additional Health Concerns Assessment Noted Time A fall risk assessment has been complete d for the patient 11/13/2020 12:24 PM EDT documented as of this encounter Care Teams Electric Refrigerator Preparer Relationship Specialty Start Date End Date Tram Leija APRN [address] [place] [phone] PCP - General 07/06/20 05/11/22 Tracy Aldrich APRN [address] [place] [phone] PCP - General 05/12/22 documented as of this encounter
--- OUTSIDE RECORDS SUMMARY | 2024-11-10 10:55 | XMS_ITS | Clinical Summary ---
Author Organization [facility] Address [address] [place] [address] Care Team Providers Care Shift Nurse Manager Name Role Phone Tracy Aldrich APRN [...] on 08/24/2024 cholecalciferol (Vitamin D-3) 1.25 MG (03480 UT) capsule Take 1 capsule (50,000 Units) [...] Type Department Care Team Description 08/31/2024 Telephone [facility] [address] [facility] [place] [address] Smita Dallas, DEREK 08/24/2024 8:30 AM EDT Office Visit [facility] [address] [facility] [place] [address] Smita Dallas, OD Myopia of both eyes (Primary Dx); Regular astigmatism of both eyes; Retinal drusen of both eyes 08/24/2024 Travel from Last 3 Months Immunizations Immunization Administration Dates Next Due HPV 9-Valent 09/15/2022,05/16/2022,03/18/2022 Hep B, adult 09/17/2018,04/20/2018,03/18/2018 Influenza, Unspecified 11/16/2019,11/12/2018 Influenza, injectable, quadr ivalent, preservative free 12/19/2022,01/09/2022,12/05/2020 Influenza, recombinant, quad rivalent, injectable, preservative free 09/19/2022 Influenza, seasonal, injecta ble, preservative free 12/09/2023 MMR 05/24/2018,04/20/2018 Pfizer Covid-19 Vaccine 12y+ , Manas Protein, PF, Renzo-Sucrose 12/19/2022 GreenButton COVID-19 Vac cine (Purple Cap) 12+ 03/29/2020,03/08/2020 Tdap 06/19/2017 Varicella 05/24/2018,04/20/2018 Family History Medical History Relation Name Comments Alcohol abuse Father Darwin Saavedra Depression Father Darwin Saavedra CHRISTIANO disease Father Darwin Saavedra Gallbladder disease Father Darwin Saavedra Hyperlipidemia Father Darwin Saavedra Hypertension Father Darwin Saavedar Mental illness Father Darwin Saavedra Migraines Father Darwin Saavedra Suicide Father Darwin Saavedra Diverticulosis Maternal Grandmother Fibroids Mother Stomach problems Mother ulcer Crohn's disease Other cousin Stroke Other Stroke Paternal Grandfather Stroke Paternal Grandmother Priscila [place] Bipolar depression Sister 1 Depression Sister 2 [place] Mental illness Sister 2 May Relation Name Status Comments Father Darwin Saavedra Maternal Grandmother Mother Other Paternal Grandfather Paternal Grandmother Ada [place] Alive Sister 1 Sister 2 May Alive Social History Tobacco Use Types Packs/Day [...] place to sleep or slept in a fpc (including now)? No 04/27/2023 Utilities Answer Date [...] Description 09/27/2025 8:15 AM EDT Office Visit [facility] [address] [facility] [place] [address] Smita [place], OD [address] [facility] [address] [place] [address] Health Maintenance Due Date Last Done Comments [facility]-HIV Screening 1993 [facility]-Hepatitis C Screening 1993 [facility]-Infant/Child/Adol SDOH Screenings 1993 [facility]- SDOH Screenings 2011 [facility]-Adult SDOH Screenings 2011 [facility]-Depression Screening 06/23/2024 06/24/2023 [id number] Vaccine ( season) 2024 12/19/2022, 12/07/2020, 03/29/2020, Additional history exists [facility]-Influenza Vaccine (#1) 10/24/202412/08, 12/19/2022, 09/19/2022, Additional [...] 2:36 PM EST) Case Report Cytology Case: [id number] Authorizing Provider: Marilynn Quintana APRN, Collected: 03/18/2022 1436 DNP Ordering Location: Medical Office Building Received: 03/18/2022 1603 Obstetrics and Gynecology First Screen: Chio Rangel Specimen: ThinPrep Pap Test, Liquid-Based Cervical/Vaginal, CERVICAL/VAGINAL 03/24/2022 4:21 PM EST [facility] Interpretation NEGATIVE FOR INTRAEPITHELIAL LESION OR MALIGNANCY 03/24/2022 4:21 PM EST [facility] at 1621 EST Specimen Adequacy Satisfactory for evaluation; endocervical/hernandez sformation zone component present. Obscuring inflammation. 03/24/2022 4:21 PM EST [facility] Cervical cytology is a screening [...] results is suggested (please call Microbiology at [phone] for results). 03/24/2022 4:21 PM EST [facility] Menstrual Status Cyclic 03/24/19 4:21 PM EST [facility] Contraceptive History Not Applicable 03/24/2022 4:21 PM EST [facility] Screening Type Routine Screen 2022 4:21 PM EST [facility] High Risk? No 03/24/2022 4:21 PM EST [facility] HPV Testing Requested? No HPV Testing Requested 03/24/2022 4:21 PM EST [facility] Previous Cancer History No 03/24/2022 4:21 PM EST [facility] Clinical Information Z01.419 - Well woman exam with routine gynecological exam [ICD-10-CM] 03/24/2022 4:21 PM EST [facility] Last Menstrual Period 02/20/2022 03/24/2022 4:21 PM EST [facility] Swab Vaginal and cervical cytologic material / Unknown Non-blood Collection / Unknown 03/18/2022 2:36 PM EST 03/18/2022 4:03 PM EST us Marilynn Quintana SCRAP HOIST OPERATOR, DNP LAB CYTOLOGY ORDERABL ES Final Result [facility] [address] [place] [address] from Last 3 Months or Most Recently Relevant to Health Maintenance Insurance [employer] Care Teams Shift Nurse Manager Relationship Specialty Start Date End Date Tracy Aldrich APRN [address] [place] [phone] PCP - General 05/12/22
--- OUTSIDE RECORDS SUMMARY | 2024-11-10 10:55 | XMS_ITS | Patient Health Record ---
[facility] Address [address] [place] [id number] Care Team Providers Care Organ Recovery Coordinator Name Role Phone Ovi Lorenz Primary Care Provider [phone] Maite Webster Unavailable [phone] Allergies Allergen (clinical drug ingredient) Drug/Non Drug [...] growth Performing Lab: Notes/Report: Test performed by [facility] [address] [place] [address] , [place] [address] Alcon Jhaveri MD, Contour Path Tape Mill Operator CLIA: [id number] Specimen Source Urine - Void Culture, Urine See Below Final Report : No growth Urinalysis - Inhouse Reviewed date:04/13/2024 11:24:01 AM Interpretation: Performing Lab: Notes/Report: Color/Clarity yellow/cloudy Leuk 2+ Nitrite neg Urobili 3.2 Protein neg pH 7.0 Blood trace-intact Sp. Gr. 1.020 Ketone neg Bili neg Gluc neg P-Culture, Urine Reviewed date:04/15/2024 01:30:36 PM Interpretation: No growth Performing Lab: Notes/Report: Test performed by [facility] [address] [place] [address] , [address], [place] [address] Alcon Jhaveri MD, Contour Path Tape Mill Operator CLIA: [id number] Specimen Source Urine - Void Culture, Urine [...] Risk Notes Problem Polycystic ovary syndrome (disorder) (413911788) PCOS (polycystic ovarian syndrome) (E28.2) Active confirmed Vital Signs Heart Rate 100 /min 03/02/2024 Blood pressure diastolic 70 mm Hg 04/13/2024 Height 63 in 04/13/2024 Blood pressure systolic 110 mm Hg 04/13/2024 Weight 122.0 lbs 04/13/2024 BMI 21.61 kg/m2 04/13/2024 Encounters Encounter Location Date Provider Diagnosis [facility] [address] [facility] [address] [place], [place] [id number] 11/11/2023 Ovi Reno Iritis H20.9 ; Acne vulgaris L70.0 and PCOS (polycystic ovarian syndrome) E28.2 [facility] [address] [facility] [address] [place], [place] [id number] 03/02/2024 Ovi Reno Urinary tract infection, site not specified N39.0 and Unspecified Escherichia coli [E. coli] as the cause of diseases classified elsewhere B96.20 [facility] [address] [facility] [address] [place], [place] [id number] 04/13/2024 Maite Crowdy Dysuria R30.0 [facility] [address] [facility] [address] [place], [place] [id number] 04/15/2024 Maite Crowdy Assessments Encounter Date Diagnosis (ICD Code) Assessment [...] Coverage Start Date Coverage End Date [facility]RAH [facility] [address] [place] [address] [id number] 1 [id number] JORDON WALLER Self - patient is the insured Medical (General) History Medical History History ICD Code Irritable Bowel Syndrome Anxiety PCOS Surgical History Surgery Date(Month/Year) Foot - Plantar wart 2019
== END 2024-11-09 23:59 | disposition home or self-care (01) ==
LOC: LAB.DROPOF 11-10 10:51
PROVIDERS: PCP Obstetrics & Gynecology; Visit Provider Obstetrics & Gynecology
DX: R39.9 Unspecified symptoms and signs involving the genitourinary system (principal); R11.0 Nausea
CPT/HCPCS: 87086

== ENCOUNTER 2024-12-29 08:50 | Outpatient (CLI) | payer BC, SELFPAY ==
--- OUTSIDE RECORDS SUMMARY | 2023-11-11 06:15 | XMS_ITS ---
Author Organization [facility] Address [address] [place] [phone] Care Team Providers Care Traffic Reporter Name Role Phone Ovi Lorenz Primary Care [...] Risk Notes Problem Polycystic ovary syndrome (disorder) (305728578) PCOS (polycystic ovarian syndrome) (E28.2) Active confirmed Vital Signs Weight 115.4 lbs 11/11/2023 Blood pressure systolic 112 mm Hg 11/11/19 24 Blood pressure diastolic 70 mm Hg 024 Heart Rate 77 /min 11/11/2023 Height 63 in 11/11/2023 BMI 20.44 kg/m2 11/11/2023 Encounters Encounter Location Date Provider Diagnosis [facility] [address] [facility] [address] [place] [phone] 11/11/2023 Ovi Lorenz Iritis H20.9 ; Acne [...] * MINNIE MONTIELEDOB:[birth year] (29 yo F)Acc No.[id number]:11/11/2023 Progress Notes Patient: JORDON JOHNSON Provider: Hamilton Lorenz M.D. :1995 A ge:28 Y S ex:Female Date:11/11/2023 Address:[address] [place] [address] Subjective: * Chief Complaints: * 1 . To get established. * HPI: H PI: 28 year old female presents with c/o Patient is here today for?Pt here to establish care, previously seen by Dariana Aldrich APRN in [place]. Pt states she was recently dx with Iritis by Dr. Kasey farmer [facility] in [place] a nd was advised to see a Mechanic'S Assistant, pt unsure if she needs referral . * ROS: D ERMATOLOGY: no R ivis. n o H noble. G ASTROENTEROLOGY: no N ausea. n o V omiting. U ROLOGY: no D ifficulty urinating. n o B lood in urine. * Medical History: I rritable Bowel Syndrome, Anxiety, PCOS. 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 * Procedure Codes: * Electronic signature of Palak Lorenz MD on 12/29/2024 at 09:04 AM EST Sign off status: Pending * Provider: Hamilton Lorenz M.D. Date: 0 11/11/2023 Generated for Flor rice/Marivel/Diana on: 02/29/2024 09:04 AM EST History and Physical Notes * HPI (History of Present Illness) Category Sub-Category Detail Notes Category Not es HPI Patient is here today for Pt her e to establish care, previously seen by Dariana Aldrich APRN in [place]. Pt states she was recently dx with Iritis by Dr. Kasey Urbina at [facility] in [place] and was advised to see a Mechanic'S Assistant, pt unsure if she needs referral Examination Category Sub-Category Detail Notes Category Not es General Examination Heart: RSR Lungs: clear to auscultatio n Extremities: no leg edema General Appearance: NAD Skin: scattered comedones, papules and a few pustules on face Peripheral pulses: normal (2+) bilatera lly
--- OUTSIDE RECORDS SUMMARY | 2024-03-02 06:15 | XMS_ITS ---
Author Organization [facility] Address [address] [place] [id number] Care Team Providers Care Mobile Ui Designer Name Role Phone Ovi Lorenz Primary Care Provider Allergies Allergen (clinical drug ingredient) Drug/Non Drug Allergy documented on EMR Reaction Allergy Type Onset Date Status oxycodone OxyCONTIN Unknown Drug Allergy Active oxycodone oxyCODONE Unknown Drug Allergy Active Results Component Value Reference Range Notes Urinalysis - Inhouse Reviewed date:03/02/2024 11:46:59 AM Interpretation: Performing Lab: Notes/Report: Color/Clarity yellow/cloudy Leuk 1+ Nitrite Neg Urobili 3.2 Protein Neg pH 7.0 Blood 1+ Sp. Gr. 1.020 Ketone Trace Bili Neg Gluc Neg P-Culture, Urine Reviewed date:03/04/2024 01:39:43 PM Interpretation:No growth Performing Lab: Notes/Report: Test performed by [employer] [address] [place] [address] , [address], [place] [address] Alcon Jhaveri MD, Domestic Travel Consultant CLIA: [id number] Specimen Source Urine - Void Culture, Urine See Below Final Report : No growth REASON FOR VISIT [facility] f/u Medications Medication SIG (Take, Route, Fr equency, Duration) Notes Start Date End Date Status Bactrim DS 800-160 MG 1 tablet Orally Tw o times a day; Duration: 7 days 03/02/2024 Active ZyrTEC Allergy 10 MG 1 tablet Orally Onc e a day; Duration: 30 day(s) Active Lexapro 10 MG 1 tablet Orally Once a day; Duration: 30 day(s) Active Vital Signs Weight 116 lbs 03/02/2024 Blood pressure systolic 114 mm Hg 03/02/19 25 Blood pressure diastolic 70 mm Hg 01/08/2 025 Heart Rate 100 /min 03/02/2024 Height 63 in 03/02/2024 BMI 20.55 kg/m2 03/02/2024 Encounters Encounter Location Date Provider Diagnosis [facility] [address] [place] [id number] 03/02/2024 Ovi Lorenz Urinary tract infection, site not specified N39.0 and Unspecified Escherichia coli [E. coli] as the cause of diseases classified elsewhere B96.20 Assessments Encounter Date Diagnosis (ICD Code) Assessment Notes Treatment Notes Treatment Clinical Notes Section Notes 03/02/2024 Urinary tract infection, site not specified (ICD-10 - N39.0) 03/02/2024 Unspecified Escherichia coli [E. coli] as the cause of diseases classified elsewhere (ICD-10 - B96.20) Plan Of Treatment Medication Medication Name Sig Start Date Stop Date Notes Bactrim DS 800-160 MG 1 tablet Orally Tw o times a day; Duration: 7 days 03/02/2024 Next Appt Details Follow Up: via phone to repo rt progress, Reason: Progress Notes * TIANA LISAJEFEJOHANNAOB:[birth year] (29 yo F)Acc No.[id number]:03/02/2024 Progress Notes Patient: JORDON JOHNSON Provider: Hamilton Lorenz M.D. :1995 A ge:28 Y S ex:Female Date:03/02/2024 Address:[address] [place] [address] [place], [place] Subjective: * Chief Complaints: * 1 . [facility] f/u. * HPI: H PI: 28 year old female presents with c/o Here for follow up on:?02/26/2024 [facility] visit. Pt went to [facility] for burning with urination, urgency and lower abdominal pain x 2 days. Pt dx with UTI and rx'd Cipro and has finished taking it. Pt states burning and urgency have improved but she is still having some cramping . * ROS: D ERMATOLOGY: no R ivis. n o H noble. G ASTROENTEROLOGY: no N ausea. n o V omiting. U ROLOGY: no D ifficulty urinating. n o B lood in urine. * Medical History: I rritable Bowel Syndrome, Anxiety, PCOS. * Surgical History: F oot - Plantar wart 2019. * Hospitalization/Major Diagno stic Procedure: D enies Past Hospitalization. * Family History: F ather: . M other: alive 62 yrs. P aternal Grand Mother: diagnosed with [...] o xyCODONE, OxyCONTIN. Objective: * Vitals: W t:116, Temp:97.8, BP:114/70, HR:100, Nurse:pavan, Ht: 63, BMI:20.55. * Examination: G eneral Examination: General Appearance: N AD. H eart: R SR. L ungs:?clear to auscultation. B ack: no CVA tenderness. Assessment: * Assessment: 1. U rinary tract infection, site not specified - N39.0 (Primary) 2 . U nspecified Escherichia coli [E. coli] as the cause of diseases classified elsewhere - B96.20 Plan: * Treatment: Value Reference Range C ulture, Urine See Below - * S pecimen Source Urine - Void - * Annie Lock 03/04/2024 8:43: 17 AM > pt started on bactrimRadhallrenettaCindy L 03/04/2024 1:39:36 PM > , Patient informed of normal results. ?LAB: Urinalysis - Inhouse (Collection Date & Time - 03/02/2024)* Value Reference Range C olor/Clarity yellow/cloudy * L euk 1+ * N itrite Neg * U robili 3.2 * P rotein Neg * p H 7.0 * B lood 1+ * S p. Gr. 1.020 * K etone Trace * B diana Neg * G sanjeev Neg * Porsche Cole 03/02/2024 11:20:35 AM > , Provider reviewed results while patient in office. 2.?Unspecified Escherichia coli [E. coli] as the cause of diseases classified elsewhere?LAB: P-Culture, Urine (Collection Date & Time - 03/02/2024 03:04 PM)?No growth* Value Reference Range C ulture, Urine See Below - * S pecimen Source Urine - Void - * Annie Lock 03/04/2024 8:43: 17 AM > pt started on bactrimCindy Anders 03/04/2024 1:39:36 PM > , Patient informed of normal results. * Procedure Codes: 8 1002 Urinalysis, no micro * Follow Up: v ia phone to report progress * Images: Billing Information: * Visit Code: 76477 Office Visit, Est Pt., Level 3. * Procedure Codes: 13517 Urinalysis, no micro. * Electronic signature of Palak Lorenz MD on 12/29/2024 at 09:05 AM EST Sign off status: Pending * Provider: Hamilton Lorenz M.D. Date: 0 03/02/2024 Generated for Flor rice/Marivel/eTransmitting on: 02/29/2024 09:05 AM EST History and Physical Notes * HPI (History of Present Illness) Category Sub-Category Detail Notes Category Not es HPI Here for follow up on: 5 [facility] visit. Pt went to [facility] for burning with urination, urgency and lower abdominal pain x 2 days. Pt dx with UTI and rx'd Cipro and has finished taking it. Pt states burning and urgency have improved but she is still having some cramping Examination Category Sub-Category Detail Notes Category Not es General Examination Heart: RSR Lungs: clear to auscultatio n General Appearance: NAD Back: no CVA tenderness
--- OUTSIDE RECORDS SUMMARY | 2024-04-13 04:45 | XMS_ITS ---
Author [facility] Address [address] [place] [phone] Care Team Providers Care Hide Washer Name Role Phone Ovi Lorenz Primary Care Provider Maite Webster Unavailable [phone] Allergies Allergen (clinical drug ingredient) Drug/Non Drug [...] growth Performing Lab: Notes/Report: Test performed by [employer], [employer] [address] [place] [address] , [address], [place] [address] Alcon Jhaveri MD, Scheduler CLIA: [id number] Specimen Source Urine - Void Culture, Urine [...] Provider Diagnosis [facility] [address] [id number] 04/13/2024 Maite Webster Dysuria R30.0 Assessments Encounter [...] * MINNIE MONTIELEDOB:[birth year] (29 yo F)Acc No.[id number]:04/13/2024 Progress Notes Patient: JORDON JOHNSON Provider: ARNOLD Guillory :1995 A ge:28 Y S ex:Female Date:04/13/2024 Address:[address] [place], [place] [phone] Pcp:Ovi Lorenz Subjective: * Chief Complaints: * [...] * Images: Billing Information: * Visit Code: 49744 Office Visit, Est Pt., Level 3. * Procedure Codes: 78415 Urinalysis, no micro. 3074F SYST BP LT 130 MM HG. 3078F DIAST BP < 80 MM HG. * Electronic signature of ARNOLD Stanley on 12/29/2024 at 09:05 AM EST Sign off status: Pending * Provider: ARNOLD Guillory Date: 0 04/13/2024 Generated for Flor rice/Marivel/Diana on: 1 02/29/2024 09:05 AM EST History and Physical Notes * HPI (History of Present Illness) Category Sub-Category Detail Notes Category Not es Urology frequent urination Pt sts he r symptoms started on Thursday, and sts that she does have test strips at home which lit up like a Bask[place] tree burning sensation flank pain fever Pressure [...]
--- OUTSIDE RECORDS SUMMARY | 2024-11-16 17:00 | XMS_ITS | Encounter Summary ---
Author Organization Healthcare Address [address] [place] [address] Care Team Providers Care Denial Resolution Specialist Name Role Phone Tracy Aldrich APRN Primary Care Provider Encounter Details Date Type Department Care Team (Late st Contact Info) Description 11/16/2024 6:00 PM EDT Immunization [facility] Pharmacist Care Team [address] [facility] [address] [place] [address] Need for immunization against influenza (Primary Dx) Social History Tobacco Use Types Packs/Day Years [...] Description 09/27/2025 8:15 AM EDT Office Visit [facility] [address] [place] [phone] Smita Dallas, OD [address] [phone] documented as of this encounter Visit Diagnoses Diagnosis Need for immunization against influenza- Primary Need for prophylactic vaccination and inoculation against influenza documented in this encounter Additional Health Concerns Assessment Noted Time A fall risk assessment has been complete d for the patient 08/25/2023 8:12 AM EDT A Body Mass Index follow-up plan has been documented for the patient 08/25/2023 8:45 AM EDT documented as of this encounter Care Teams Denial Resolution Specialist Relationship Specialty Start Date End Date Tracy Aldrich APRN [address] [place] [address] PCP - General 05/12/22 documented as of this encounter
--- NOTE | 2024-12-29 09:00 | US_ITS ---
PROCEDURE: US OB /MATERNAL DETAIL CLINICAL INDICATION: Schedule 20wk anatomy scan in 4wks COMPARISON: No exams were available for comparison FINDINGS: Transabdominal sonographic images of the pelvis were obtained. From her established due date she is 20 weeks 0 days. Single viable intrauterine gestation. cephalic position. Placenta: Posteriorplacenta grade 1. The placenta is low lying and 1.95 cm from the internal os. Are multiple placental lakes seen. There is an average amount of fluid. The cervix appears satisfactory. Closed and measuring 4.14 cm in length. Complete survey performed and was unremarkable on the submitted images as in PACS. No discrete anomalies identified on survey imaging by technologist. Active fetus. Three-vessel cord with satisfactory umbilical cord insertion. 4- chamber heart noted. Situs, aortic arch, LVOT, RVOT, three-vessel view appear normal. Survey of brain & ventricles Unremarkable. Cerebellum, thalamus, choroid plexus, cisterna magna appear normal. Face and neck survey unremarkable. Profile, nasion, lips and nose appeared normal. Diaphragm and chest views unremarkable. Abdomen: Both kidneys noted and unremarkable. Stomach and bladder noted and satisfactory. Spine: Survey of the spine satisfactory with no anomalies identified nor imaged. Cervical, thoracic, lower spine appear normal. Both arms and legs noted. Amniotic Fluid: Adequate. MVP 2.37 cm Measurements: Average ultrasound age 19weeks 1day. Estimated due date by ultrasound age 0405/24/2025. Estimated weight 265g BPD = 19weeks 1day HC = 19weeks 0 days AC = 19weeks 1day FL = 18weeks 6days Growth Percentile= 6 Heart Rate = 149bpm Cerebellum = 18weeks 4days Humerus = 19weeks 3days HC/AC is 1.19 FL/BPD is 0.66 FL/AC is 0.21 IMPRESSION: 1. Viable fetus in the cephalic presentation with a posterior placenta grade 1. There are multiple placental lakes. 2. The placenta is low lying and 1.95 cm from the internal cervical os. Would suggest repeat scan at 28 weeks. 3. The fluid is within normal limits with an MVP 2.37 cm. 4. Anatomical scan appears normal. 5. biometry is consistent with the dates. Dictated by: Darwin Pacheco MD 12/29/2024 11:15 Darwin Pacheco MD in OV 12/29/2024 11:15
--- OUTSIDE RECORDS SUMMARY | 2024-12-29 09:04 | XMS_ITS | Encounter Summary ---
Author Organization Healthcare Address [address] [place] [address] Care Team Providers Care Pencil Sorter Name Role Phone Tracy Aldrich APRN Primary Care Provider Encounter Details Date Type Department Care Team (Latest Contact Info) Description 11/16/2024 Travel Social History Tobacco Use Types Packs/Day [...] Description 09/27/2025 8:15 AM EDT Office Visit [facility] [address] [place] [address] Smita [place], OD [address] [place] [address] documented as of this encounter Visit Diagnoses Not on filedocumented in this encounter Additional Health Concerns Assessment Noted Time A fall risk assessment has been complete d for the patient 08/25/2023 8:12 AM EDT A Body Mass Index follow-up plan has been documented for the patient 08/25/2023 8:45 AM EDT documented as of this encounter Care Teams Pencil Sorter Relationship Specialty Start Date End Date Tracy Aldrich APRN [address] [place] [address] PCP - General 05/12/22 documented as of this encounter
--- OUTSIDE RECORDS SUMMARY | 2024-12-29 09:04 | XMS_ITS | Patient Health Record ---
Author Organization [facility] Address [address] [facility] [address] [place] [address] Care Team Providers Care Field Operations Supervisor Name Role Phone Piper Chiu Unavailable [phone] Allergies Allergen (clinical drug ingredient) Drug/Non Drug [...] Status Risk Notes Problem Gynecological examination normal ([id number] ) Cervical smear, as part of routine [...]
--- OUTSIDE RECORDS SUMMARY | 2024-12-29 09:04 | XMS_ITS | Encounter Summary ---
Author Organization Healthcare Address [address] [place] [address] Care Team Providers Care Human Relations Professor Name Role Phone Tracy Aldrich APRN Primary Care Provider Reason for Visit * Reason Comments Med Refill Encounter Details Date Type Department Care Team (Late st Contact Info) Description 11/17/2024 Refill [facility] Team [facility] [address] [place] [address] Tracy Aldrich APRN [address] [place] [address] Generalized anxiety disorder Social History [...] place to sleep or slept in a usp (including now)? No 04/27/2023 Utilities Answer Date [...] Description 09/27/2025 8:15 AM EDT Office Visit [facility] [address] [place] [address] Smita [place], OD [address] [place] [address] documented as of this encounter Visit Diagnoses Diagnosis Generalized anxiety disorder documented in this encounter Additional Health Concerns Assessment Noted Time A fall risk assessment has been complete d for the patient 08/25/2023 8:12 AM EDT A Body Mass Index follow-up plan has been documented for the patient 08/25/2023 8:45 AM EDT documented as of this encounter Care Teams Human Relations Professor Relationship Specialty Start Date End Date Tracy Aldrich APRN [address] [place] [address] PCP - General 05/12/22 documented as of this encounter
--- OUTSIDE RECORDS SUMMARY | 2024-12-29 09:05 | XMS_ITS | Clinical Summary ---
Author Organization [facility] Address [address] [place] [address] Care Team Providers Care Dry Wall Installer Name Role Phone Tracy Aldrich APRN Primary [...] on 08/24/2024 cholecalciferol (Vitamin D-3) 1.25 MG (36632 UT) capsule Take 1 capsule (50,000 Units) by mouth 1 (one) time per week. 12 capsule 4 Active Additional Information Patient not taking.Reported on 08/24/2024 escitalopram (Lexapro) 10 MG tabletIndicatio ns:Generalized anxiety disorder TAKE 1 TABLET BY MOUTH DAILY 90 tablet 5 Active Active Problems Problem Noted Date Diagnosed Date Regular astigmatism of both eyes 08/24/2024 Retinal drusen of both eyes 08/24/2024 PCOS (polycystic ovarian syndrome) 06/24/2023 Visual disturbance 08/20/2020 Blood pressure lower than prior measurement 08/2020 Irregular periods/menstrual cycles 01/31/2020 Abnormal MRI 10/24/2019 Migraine 10/12/2019 Myopia of both eyes 09/29/2019 Irritable bowel syndrome wit h both constipation and diarrhea 09/08/2019 Plantar wart, left foot 10/28/2018 Scoliosis 10/28/2018 Chronic constipation 02/07/2016 Acne vulgaris 01/25/2016 Resolved Problems Problem Noted Date Diagnosed Date Resolved Date Lymphadenopathy, inguinal 03/01/2020 Lymphadenopathy, submandibular 01/31/2020 07/01/2022 High myopia, bilateral 01/05/202011/13 Subjective visual disturbance of left eye 09/22/2019 07/01/2022 Breakthrough bleeding 09/19/20192022 Sinusitis 08/18/2019 07/01/2022 ETD (eustachian tube dysfunction) 08/11/2019 07/01/2022 Pain of toe of right foot 10/28/2018 Situational anxiety 10/28/2018 07/02/19 23 Encounters Date Type Department Care Team Description 11/17/2024 Refill [facility] Team [facility] [address] [place] [address] Tracy Aldrich APRN Generalized anxiety disorder 11/16/2024 6:00 PM EDT Immunization [facility] Pharmacist Care Team [address] [place] [address] Need for immunization against influenza (Primary Dx) 11/16/2024 Travel from Last 3 Months Immunizations Immunization Administration Dates Next Due HPV 9-Valent 09/15/2022,05/16/2022,03/18/2022 Hep B, adult 09/17/2018,04/20/2018,03/18/2018 Influenza, Unspecified 11/16/2019,11/12/2018 Influenza, injectable, quadr ivalent, preservative free 12/19/2022,01/09/2022,12/05/2020 Influenza, recombinant, quad rivalent, injectable, preservative free 09/19/2022 Influenza, seasonal, injecta ble, preservative free 11/16/2024,12/09/2023 MMR 05/24/2018,04/20/2018 Pfizer Covid-19 Vaccine 12y+ , Manas Protein, PF, Renzo-Sucrose 12/19/2022 ZENN [employer] COVID-19 Vac cine (Purple Cap) 12+ 03/29/2020,03/08/2020 [...] Bipolar depression Sister 1 Depression Sister 2 Bea Shel[place] Mental illness Sister 2 May Shel[place] Relation Name Status Comments Father Darwin Saavedra Maternal Grandmother Mother Other Paternal Grandfather Paternal Grandmother Ada Shel[place]ne Alive Sister 1 Sister 2 May Shele Alive Social History Tobacco Use Types Packs/Day [...] place to sleep or slept in a jail (including now)? No 04/27/2023 Utilities Answer Date [...] Description 09/27/2025 8:15 AM EDT Office Visit [facility] [address] [place] [address] Smita [place], OD [address] [address] Health Maintenance Due Date Last Done Comments [facility]-HIV Screening 1993 [facility]-Hepatitis C Screening 1993 [facility]-Infant/Child/Adol SDOH Screenings 1993 [facility]- SDOH Screenings 2011 [facility]-Adult SDOH Screenings 2011 [facility]-Depression Screening 06/23/2024 06/24/2023 FJT-PYDKR-30 Vaccine ( season) 2024 12/19/2022, 12/07/2020, 03/29/2020, Additional history exists [facility]-Pap Smear 03/18/2025 03/18/2022 [facility]-Cervical Cancer Screening 03/18/2027 [facility]-HPV/Cotest 03/18/2027 03/18/2022 [facility]-DTaP,Tdap,and Td Vaccines (2 - Td or Tdap) 06/20/2027 06/19/2017 [facility]-Zoster Vaccines (1 of 2) 2043 05/24/2018, 04/20/2018 [facility]-Varicella Vaccines Completed 05/24/2018, 2018 [facility]-Hepatitis B Vaccines Completed 019, 04/20/2018, 03/18/2018 HPV Vaccines Completed 09/15/2022, 04/24, 03/18/2022 [facility]-Influenza Vaccine Completed 11/16/2024 , 12/09/2023, 12/19/2022, Additional history exists [facility]-HIB Vaccines Aged Out No longer e [...] 2:36 PM EST) Case Report Cytology Case: [id number] Authorizing Provider: Marilynn Quintana APRN, Collected: 03/18/2022 1436 DNP Ordering Location: Medical Office Building Received: 03/18/2022 1603 Obstetrics and Gynecology First Screen: Chio Rangel Specimen: ThinPrep Pap Test, Liquid-Based Cervical/Vaginal, CERVICAL/VAGINAL 03/24/2022 4:21 PM EST [email or web address] Interpretation NEGATIVE FOR INTRAEPITHELIAL LESION OR MALIGNANCY 03/24/2022 4:21 PM EST [email or web address] at 1621 EST Specimen Adequacy Satisfactory for evaluation; endocervical/hernandez sformation zone component present. Obscuring inflammation. 03/24/2022 4:21 PM EST [facility] Cervical cytology is a screening test [...] results is suggested (please call Microbiology at [phone] for results). 03/24/2022 4:21 PM EST [facility] Menstrual Status Cyclic 03/24/19 4:21 PM EST [facility] Contraceptive History Not Applicable 03/24/2022 4:21 PM EST [facility] Screening Type Routine Screen 2022 4:21 PM EST [facility] High Risk? No 03/24/2022 4:21 PM EST [facility] HPV Testing Requested? No HPV Testing Requested 03/24/2022 4:21 PM EST [facility] Previous Cancer History No 03/24/2022 4:21 PM EST [facility] Clinical Information Z01.419 - Well woman exam with routine gynecological exam [ICD-10-CM] 03/24/2022 4:21 PM EST [facility] Last Menstrual Period 02/20/2022 03/24/2022 4:21 PM EST [facility] Swab Vaginal and cervical cytologic material / Unknown Non-blood Collection / Unknown 03/18/2022 2:36 PM EST 03/18/2022 4:03 PM EST Marilynn Quintana APRN, DNP LAB CYTOLOGY ORDERABL ES Final Result [facility] [address] [place] [address] from Last 3 Months or Most Recently Relevant to Health Maintenance Insurance [employer] Care Teams Dry Wall Installer Relationship Specialty Start Date End Date Tracy Aldrich APRN [address] [place] [address] PCP - General 05/12/22
--- OUTSIDE RECORDS SUMMARY | 2024-12-29 09:05 | XMS_ITS | Encounter Summary ---
Author Organization Healthcare Address [address] [place] [address] Care Team Providers Care Mechanical Design Engineer Facilities Name Role Phone Tram Leija RETAIL PERSONAL BANKER Primary Care Provider Tracy Aldrich RETAIL PERSONAL BANKER Primary Care Provider Encounter Details Date Type Department Care Team (Late st Contact Info) Description 12/05/2020 Lab Requisition [facility] [address] [place] [address] Flavio James MD [address] [facility] [address] [place] [address] Radha Social History Tobacco Use Types Packs/Day [...] Description 09/27/2025 8:15 AM EDT Office Visit [facility] [address] [place] [address] Smita [place], OD [address] [place] [address] documented as of this encounter Procedures Procedure Name Priority Date/Time Associated Diagnosis Comments SURGICAL PATHOLOGY EXAM Routine 12/06/2020 5:51 PM EDT Melena documented in this encounter Results * Surgical Pathology Exam (12/06/2020 5:51 PM EDT) Case Report Surgical Pathology Case: [id number] Authorizing Provider: Flavio James MD Collected: Ordering Location: [facility] Received: 12/05/2020 1309 Pathologist: Linda Dhillon MD Specimen: Rectum, Rectal Bx 12/06/2020 5:51 PM EDT [facility] Final Diagnosis Rectum, biopsy: Normal colonic mucosa with lymphoid follicle Mucosal edema and focal minor superficial petechial hemorrhage (consistent with preparation artifact) 12/06/2020 5:51 PM EDT [facility] at 1751 EDT Clinical Information Hematochezia 12/06/2020 5:51 PM EDT [facility] Gross Description A. RECTAL BX The specimen is received in formalin labeled rectal BX , and consists of three colon-brown soft tissue fragments ranging from 0.2-0.3 cm in greatest dimension. Entirely submitted in cassette A1. Viri Houston 12/06/2020 5:51 PM EDT [facility] Note: A resident was involved in the service. I attest I examined the relevant preparations for the specimens and confirmed the diagnosis or interpretation. 12/06/2020 5:51 PM EDT [facility] Tissue Rectum structure / Unknown 12/05/2020 1:09 PM EDT us Flavio James MD LAB PATHOLOGY ORDERABLES Final Result [facility] [address] [place] [address] documented in this encounter Visit Diagnoses Diagnosis Melena Blood in stool documented in this encounter Additional Health Concerns Assessment Noted Time A fall risk assessment has been complete d for the patient 11/13/2020 12:24 PM EDT documented as of this encounter Care Teams Mechanical Design Engineer Facilities Relationship Specialty Start Date End Date Tram Leija, RETAIL PERSONAL BANKER [address] [place] [address] PCP - General 07/06/20 05/11/22 Tracy Aldrich APRN [address] [place] [address] PCP - General 05/12/22 documented as of this encounter
--- OUTSIDE RECORDS SUMMARY | 2024-12-29 09:05 | XMS_ITS ---
Author Organization Unknown ENCOUNTERS Encounter Performer Location Date Diagnosis Diagnosis Status Emergency [facility] [place] [address] [place] [id number] CORI Pre Admit [facility] [place] [address] [place] [id number] *Note: Encounters from your own facility or health system may be excluded. Allergies, Adverse Reactions, Alerts Allergen Type Severity Identification Date latex drug allergy [id number] Medications Name Date Quantity Days Supplied GPI Number
--- OUTSIDE RECORDS SUMMARY | 2024-12-29 09:05 | XMS_ITS | Clinical Summary ---
Author Organization [facility] Address [address] [place] [id number] Care Team Providers Care Traffic Or System Dispatcher Name Role Phone Jannette Armenat MD Primary Care Provi kailey Allergies Active [...] patient's age to complete this topic Insurance [facility] PPO Care Teams Traffic Or System Dispatcher Relationship Specialty Start Date End Date Jannette Armenta MD [address] [place] [address] PCP - General Internal Medicine 02/07/16
--- OUTSIDE RECORDS SUMMARY | 2024-12-29 09:05 | XMS_ITS | Patient Health Record ---
[facility] Address [address] [place] [id number] Care Team Providers Care Mail Processing Equipment Mechanic Name Role Phone Ovi Lorenz Primary Care Provider [phone] Maite Webster Unavailable [phone] Allergies Allergen (clinical drug ingredient) Drug/Non Drug Allergy documented on EMR Reaction Allergy Type Onset Date Status oxycodone OxyCONTIN Unknown Drug Allergy Active oxycodone oxyCODONE Unknown Drug Allergy Active Results Component Value Reference Range Notes P-Culture, Urine Reviewed date:03/04/2024 01:39:43 PM Interpretation:No growth Performing Lab: Notes/Report: Test performed by [facility] [address] [place], [place] [address] [place] , [address], [place] [id number] Alcon Jhaveri MD, Wolf Hunter CLIA: [id number] Specimen Source Urine - Void Culture, Urine See Below Final Report : No growth Urinalysis - Inhouse Reviewed date:03/02/2024 11:46:59 AM Interpretation: Performing Lab: Notes/Report: Color/Clarity yellow/cloudy Leuk 1+ Nitrite Neg Urobili 3.2 Protein Neg pH 7.0 Blood 1+ Sp. Gr. 1.020 Ketone Trace Bili Neg Gluc Neg P-Culture, Urine Reviewed date:04/15/2024 01:30:36 PM Interpretation: No growth Performing Lab: Notes/Report: Test performed by [facility] [address] [place], [place] [address] [place] , [address], [place] [address] Alcon Jhaveri MD, Wolf Hunter CLIA: [id number] Specimen Source Urine - Void Culture, Urine See Below Final Report : No growth Urinalysis - Inhouse Reviewed date:04/13/2024 11:24:01 AM Interpretation: Performing Lab: Notes/Report: Color/Clarity yellow/cloudy Leuk 2+ Nitrite neg Urobili 3.2 Protein neg pH 7.0 Blood trace-intact Sp. Gr. 1.020 Ketone neg Bili neg Gluc neg Reason For Referral No Information Medications Medication [...] Risk Notes Problem Polycystic ovary syndrome (disorder) (960950630) PCOS (polycystic ovarian syndrome) (E28.2) Active confirmed Vital Signs Heart Rate 100 /min 03/02/2024 Blood pressure diastolic 70 mm Hg 04/13/2024 Height 63 in 04/13/2024 Blood pressure systolic 110 mm Hg 04/13/2024 Weight 122.0 lbs 04/13/2024 BMI 21.61 kg/m2 04/13/2024 Encounters Encounter Location Date Provider Diagnosis [facility] [address] [facility] [address] [place] [phone] 03/02/2024 Ovi Portage Urinary tract infection, site not specified N39.0 and Unspecified Escherichia coli [E. coli] as the cause of diseases classified elsewhere B96.[address] [facility] [address] [place] [id number] 04/13/2024 Maite Webster Dysuria R30.0 [facility] [address] [place] [id number] 04/15/2024 Maite Webster Assessments Encounter Date Diagnosis (ICD Code) Assessment Notes Treatment Notes Treatment Clinical Notes Section Notes 03/02/2024 Urinary tract infection, site not specified (ICD-10 - N39.0) 03/02/2024 Unspecified Escherichia coli [E. coli] as the cause of diseases classified elsewhere (ICD-10 - B96.20) 04/13/2024 Dysuria (ICD-10 - R30.0) Increase water intake, no caffeine, no baths only showers Plan Of Treatment No Information Insurance Providers Payer Name Payer Address Payer Phone Subscriber Number Group Number Insured Name Patient Relationship to Insured Coverage Start Date Coverage End Date FARRAH JACKSON [address] [place] [address] [id number] JORDON MONTIEL Self - patient is the insured Medical (General) History Medical History History ICD Code Irritable Bowel Syndrome Anxiety PCOS Surgical History Surgery Date(Month/Year) Foot - Plantar wart 2019
== END 2024-12-29 23:59 | disposition home or self-care (01) ==
LOC: RAD 08:51
PROVIDERS: PCP Family Medicine; Visit Provider Obstetrics & Gynecology
DX: O28.3 Abnormal ultrasonic finding on antenatal screening of mother (principal); O44.42 Low lying placenta NOS or without hemorrhage, second trimester; O99.282 Endocrine, nutritional and metabolic diseases complicating pregnancy, second trimester; E28.2 Polycystic ovarian syndrome; Z3A.20 20 weeks gestation of pregnancy
CPT/HCPCS: 76811

== ENCOUNTER 2025-01-26 12:50 | Outpatient (CLI) | payer BC, SELFPAY ==
--- OUTSIDE RECORDS SUMMARY | 2025-01-26 12:52 | XMS_ITS | Encounter Summary ---
Author Organization Healthcare Address [address] [place] [address] Care Team Providers Care Per Diem Physical Therapist Name Role Phone Tram Leija STEAMER BLOCKER Primary Care Provider [phone] Tracy Aldrich STEAMER BLOCKER Primary Care Provider Encounter Details Date Type Department Care Team (Late st Contact Info) Description 12/05/2020 Lab Requisition [facility] [address] [place] [address] Flavio James MD [address] [place] [address] Radha Social History Tobacco Use Types Packs/Day [...] Care Team (Late st Contact Info) Description 02/01/2025 9:15 AM EST Office Visit [facility] [address] [place] [address] Ney Greene, OD [address] [facility] [address] [place] [address] 09/27/2025 8:15 AM EDT Office Visit [facility] [address] [place] [address] Smita Dallas, OD [address] [facility] [address] [place] [address] documented as of this encounter Procedures Procedure Name Priority Date/Time Associated Diagnosis Comments SURGICAL PATHOLOGY EXAM Routine 12/06/2020 5:51 PM EDT Melena documented in this encounter Results * Surgical Pathology Exam (12/06/2020 5:51 PM EDT) Case Report Surgical Pathology Case: [id number] Authorizing Provider: Flavio James MD Collected: Ordering Location: [facility] Lab Received: 12/05/2020 1309 Pathologist: Linda Dhillon MD Specimen: Rectum, Rectal Bx 12/06/2020 5:51 PM EDT [facility] Final Diagnosis Rectum, biopsy: Normal colonic mucosa with lymphoid follicle Mucosal edema and focal minor superficial petechial hemorrhage (consistent with preparation artifact) 12/06/2020 5:51 PM EDT [facility] at 1751 EDT Clinical Information Hematochezia 12/06/2020 5:51 PM EDT [facility] Gross Description A. RECTAL BX The specimen is received in formalin labeled rectal BX , and consists of three colon-brown soft tissue fragments ranging from 0.2-0.3 cm in greatest dimension. Entirely submitted in cassette A1. Viri Houston 12/06/2020 5:51 PM EDT [facility] Note: A resident was involved in the service. I attest I examined the relevant preparations for the specimens and confirmed the diagnosis or interpretation. 12/06/2020 5:51 PM EDT [facility] Tissue Rectum structure / Unknown 12/05/2020 1:09 PM EDT us Flavio James MD LAB PATHOLOGY ORDERABLES Final Result [facility] [address] [place] [address] documented in this encounter Visit Diagnoses Diagnosis Melena Blood in stool documented in this encounter Additional Health Concerns Assessment Noted Time A fall risk assessment has been complete d for the patient 11/13/2020 12:24 PM EDT documented as of this encounter Care Teams Per Diem Physical Therapist Relationship Specialty Start Date End Date Tram Leija APRN [address] [place] [phone] PCP - General 07/06/20 05/11/22 Tracy Aldrich APRN [address] [place] [address] PCP - General 05/12/22 documented as of this encounter
--- OUTSIDE RECORDS SUMMARY | 2025-01-26 12:52 | XMS_ITS | Clinical Summary ---
Author Organization [facility] Address [address] [place] [id number] Care Team Providers Care Ring Conductor Name Role Phone Jannette Armenta MD Primary [...] patient's age to complete this topic Insurance [facility] PPO Care Teams Ring Conductor Relationship Specialty Start Date End Date Jannette Armenta MD [address] [place] [address] PCP - General Internal Medicine 02/07/16
--- OUTSIDE RECORDS SUMMARY | 2025-01-26 12:53 | XMS_ITS | Clinical Summary ---
Author Organization [facility] Address [address] [place] [address] Care Team Providers Care Shoe Worker Name Role Phone Tracy Aldirch APRN Primary Care Provider Allergies Active Allergy [...] on 08/24/2024 cholecalciferol (Vitamin D-3) 1.25 MG (00818 UT) capsule Take 1 capsule (50,000 Units) [...] Type Department Care Team Description 11/17/2024 Refill [facility] Team [facility] [address] [place] [address] Tracy Aldrich APRN Generalized anxiety disorder 11/16/2024 6:[address] [facility] Pharmacist Care Team [address] [place] [address] Need for immunization against influenza (Primary Dx) 11/16/2024 Travel from Last 3 Months Immunizations Immunization Administration Dates Next Due HPV 9-Valent 09/15/2022,05/16/2022,03/18/2022 Hep B, adult 09/17/2018,04/20/2018,03/18/2018 Influenza, Unspecified 11/16/2019,11/12/2018 Influenza, injectable, quadr ivalent, preservative free 12/19/2022,01/09/2022,12/05/2020 Influenza, recombinant, quad rivalent, injectable, preservative free 09/19/2022 Influenza, seasonal, injecta ble, preservative free 11/16/2024,12/09/2023 MMR 05/24/2018,04/20/2018 Pfizer Covid-19 Vaccine 12y+ , Manas Protein, PF, Renzo-Sucrose 12/19/2022 IQzone COVID-19 Vac cine (Purple Cap) 12+ 03/29/2020,03/08/2020 [...] place to sleep or slept in a correction (including now)? No 04/27/2023 Utilities Answer Date [...] Description 02/01/2025 9:15 AM EST Office Visit [facility] [address] [place] [address] Ney Greene, OD [address] [facility] [address] [place] [address] 09/27/2025 8:15 AM EDT Office Visit [facility] [address] [place] [address] Smita Dallas, OD [address] [facility] [address] [place] [address] Health Maintenance Due Date Last Done Comments [facility]-HIV Screening 1993 [facility]-Hepatitis C Screening 1993 [facility]-Infant/Child/Adol SDOH Screenings 1993 [facility]- SDOH Screenings 2011 [facility]-Adult SDOH Screenings 2011 [facility]-Depression Screening 06/23/2024 06/24/2023 [id number] Vaccine ( season) 2024 12/19/2022, 12/07/2020, 03/29/2020, [...] 2:36 PM EST) Case Report Cytology Case: [id number] Authorizing Provider: Marilynn Quintana APRN, Collected: 03/18/2022 1436 DNP Ordering Location: Medical Office Building Received: 03/18/2022 1603 Obstetrics and Gynecology First Screen: Chio Rangel Specimen: ThinPrep Pap Test, Liquid-Based Cervical/Vaginal, CERVICAL/VAGINAL 03/24/2022 4:21 PM EST [facility] Interpretation NEGATIVE FOR INTRAEPITHELIAL LESION OR MALIGNANCY 03/24/2022 4:21 PM EST [facility] at 1621 EST Specimen Adequacy Satisfactory for evaluation; endocervical/hernandez sformation zone component present. Obscuring inflammation. 03/24/2022 4:21 PM EST [facility] Cervical cytology is a screening [...] results is suggested (please call Microbiology at [phone] for results). 03/24/2022 4:21 PM EST [facility] Menstrual Status Cyclic 03/24/19 4:21 PM EST [facility] Contraceptive History Not Applicable 03/24/2022 4:21 PM EST [facility] Screening Type Routine Screen 2022 4:21 PM EST [facility] High Risk? No 03/24/2022 4:21 PM EST [facility] HPV Testing Requested? No HPV Testing Requested 03/24/2022 4:21 PM EST [facility] Previous Cancer History No 03/24/2022 4:21 PM EST [facility] Clinical Information Z01.419 - Well woman exam with routine gynecological exam [ICD-10-CM] 03/24/2022 4:21 PM EST [facility] Last Menstrual Period 02/20/2022 03/24/2022 4:21 PM EST [facility] Swab Vaginal and cervical cytologic material / Unknown Non-blood Collection / Unknown 03/18/2022 2:36 PM EST 03/18/2022 4:03 PM EST Marilynn Quintana DOG DAYCARE PROVIDER, DNP LAB CYTOLOGY ORDERABL ES Final Result [facility] [address] [place] [id number] from Last 3 Months or Most Recently Relevant to Health Maintenance Insurance [employer] Care Teams Shoe Worker Relationship Specialty Start Date End Date Tracy Aldrich APRN [address] [place] [phone] PCP - General 05/12/22
--- NOTE | 2025-01-26 13:00 | US_ITS ---
PROCEDURE: US OB FOLLOW UP CLINICAL INDICATION: growth, placenta and placental lakes w/ PDS COMPARISON: US US OB /MATERNAL DETAIL from 12/29/2024 FINDINGS: Transabdominal sonographic images of the pelvis were obtained. The following parameters are obtained: From her established due date she is 23weeks 1day Viable fetus in the breech presentation with a posterior placenta grade 1. There are several placental lakes at the inferior aspect of the placenta. See images 34-36. There other small lakes throughout the placenta. The posterior placenta measures 1.95-2.13 cm from the internal cervical os. The cervix measures 3.76 cm. heart rate: 156bpm bpm. Average ultrasound age 23 weeks 0 days Estimated weight 525 grams, 1 lb 3 oz BPD: 23weeks 2days, 47 percentile HC: 23weeks 2days, 35 percent AC: 22weeks 6days, 31 percentile FL: 22weeks 3days, 16 percentile HC/AC: 1.18 FL/BPD: 0.68 FL/AC: 0.21 Growth percentile: 22 Amniotic fluid: Appears adequate. No obvious anomalies evident. profile seen, stomach, bladder, kidneys, three-vessel cord, four chamber heart appear normal. IMPRESSION: Within normal limits. 1. Viable fetus in the breech presentation with a posterior placenta grade 1. 2. There are several lakes throughout the placenta and a collection of lakes on the inferior aspect of the placenta. 3. The fluid is within normal limits. The rail car mechanic commented that there was debris within the amniotic fluid. 4. The posterior placenta is still low lying and measures 1.95-2.13 cm from the internal cervical os. 5. There has been good interval growth with the fetus currently 22nd percentile. 6. Limited anatomical scan appears normal. 7. Suggest the patient return again at 28 weeks to look at the low lying posterior placenta. Dictated by: Darwin Pacheco MD 01/26/2025 14:57 Darwin Pacheco MD in OV 01/26/2025 14:57
== END 2025-01-26 23:59 | disposition home or self-care (01) ==
LOC: RAD 12:51
PROVIDERS: PCP Family Medicine; Visit Provider Obstetrics & Gynecology
DX: O28.3 Abnormal ultrasonic finding on antenatal screening of mother (principal); O32.1XX0 Maternal care for breech presentation, not applicable or unspecified; O36.5920 Maternal care for other known or suspected poor fetal growth, second trimester, not applicable or unspecified; O44.42 Low lying placenta NOS or without hemorrhage, second trimester; Z3A.23 23 weeks gestation of pregnancy
CPT/HCPCS: 76816

== ENCOUNTER 2025-02-17 09:29 | Outpatient (CLI) | payer BC, SELFPAY ==
--- OUTSIDE RECORDS SUMMARY | 2023-11-11 06:15 | XMS_ITS ---
Author Organization [facility] Address [address] [place] [id number] Care Team Providers Care Supervisor Roving Department Name Role Phone Ovi Lorenz Primary Care Provider Allergies Allergen (clinical drug ingredient) Drug/Non Drug Allergy documented on EMR Reaction Allergy Type Onset Date Status oxycodone OxyCONTIN Unknown Drug Allergy Active oxycodone oxyCODONE Unknown Drug Allergy Active REASON FOR VISIT to get established Medications Medication SIG (Take, Route, Fr equency, Duration) Notes Start Date End Date Status ZyrTEC Allergy 10 MG 1 tablet Orally Onc e a day; Duration: 30 day(s) Active Lexapro 10 MG 1 tablet Orally Once a day; Duration: 30 day(s) Active Problems Problem Type SNOMED Code ICD Code Onset Dates Problem Status W/U Status Risk Notes Problem Polycystic ovary syndrome (disorder) (937033862) PCOS (polycystic ovarian syndrome) (E28.2) Active confirmed Vital Signs Weight 115.4 lbs 11/11/2023 Blood pressure systolic 112 mm Hg 11/11/19 24 Blood pressure diastolic 70 mm Hg 024 Heart Rate 77 /min 11/11/2023 Height 63 in 11/11/2023 BMI 20.44 kg/m2 11/11/2023 Encounters Encounter Location Date Provider Diagnosis [facility] [address] [facility] 2[address] [place] [phone] 11/11/2023 Ovi Lorenz Iritis H20.9 ; Acne vulgaris L70.0 and PCOS (polycystic ovarian syndrome) E28.2 Assessments Encounter Date Diagnosis (ICD Code) Assessment Notes Treatment Notes Treatment Clinical Notes Section Notes 11/11/2023 Iritis (ICD-10 - H20.9) Need previous records 11/11/2023 Acne vulgaris (ICD-10 - L70.0) Discussed OTC treatments 11/11/2023 PCOS (polycystic ovarian syndrome) (ICD-10 - E28.2) Patient declines treatment today, discussed Metformin and spironolactone. She does not want to use oral contraceptives. Need to see records from previous evaluation. Patient will provide records Plan Of Treatment Treatment Notes Assessment Notes Iritis Need previous record s Acne vulgaris Discussed OTC treatm ents PCOS (polycystic ovarian syndrome) Patie nt declines treatment today, discussed Metformin and spironolactone. She does not want to use oral contraceptives. Need to see records from previous evaluation. Patient will provide records Next Appt Details Follow Up: via phone to repo rt progress, Reason: Progress Notes * MINNIE MONTIELEDOB:[birth year] (29 yo F)Acc No.[id number]:11/11/2023 Progress Notes Patient: JORDON JOHNSON Provider: Hamilton Lorenz M.D. :1995 A ge:28 Y S ex:Female Date:11/11/2023 Address:[address] [place] [address] Subjective: * Chief Complaints: * 1 . To get established. * HPI: H PI: 28 year old female presents with c/o Patient is here today for?Pt here to establish care, previously seen by Dariana Aldrich APRN in [place]. Pt states she was recently dx with Iritis by Dr. Kasey farmer [facility] in [place] a nd was advised to see a Retail Parts Professional, pt unsure if she needs referral . * ROS: D ERMATOLOGY: no R ivis. n o H noble. G ASTROENTEROLOGY: no N ausea. n o V omiting. U ROLOGY: no D ifficulty urinating. n o B lood in urine. * Medical History: I rritable Bowel Syndrome, Anxiety, PCOS. 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 H /O Date of Last Period 0 10/16/2023. * OB History: T otal pregnancies 0 . * Surgical History: F oot - Plantar wart 2019. * Hospitalization/Major Diagno stic Procedure: D enies Past Hospitalization. * Family History: F ather: . M other: alive 61 yrs. P aternal Grand Mother: diagnosed with Stroke. 1 brother(s) , 1 sister(s) . . * Social History: C URRENT TOBACCO USE: No . C affeine: yes, frequency: 7 times per week. Alcohol: yes, 4 times per week. * Medications: T aking ZyrTEC Allergy 10 MG Tablet 1 tablet Orally Once a day , Taking Lexapro 10 MG Tablet 1 tablet Orally Once a day , Medication List reviewed and reconciled with the patient * Allergies: o xyCODONE, OxyCONTIN. Objective: * Vitals: W t:115.4, Temp:97.8, BP:112/70, HR:77, Nurse:pavan, Ht:63, BMI:20.44. * Examination: G eneral Examination: General Appearance: N AD. H eart: R SR. L ungs:?clear to auscultation. S kin: s cattered comedones, papules and a few pustules on face. P eripheral pulses: n ormal (2+) bilaterally. E xtremities: n o leg edema. ? Assessment: * Assessment: 1. I ritis - H20.9 (Primary) 2 . A cne vulgaris - L70.0 3 .?PCOS (polycystic ovarian syndrome) - E28.2 Plan: * Treatment: 2. A cne vulgaris Notes: Discussed OTC treatments 3. P COS (polycystic ovarian syndrome) Notes: Patient declines treatment today, discussed Metformin and spironolactone. She does not want to use oral contraceptives. Need to see records from previous evaluation. Patient will provide records * Follow Up: v ia phone to report progress * Images: Billing Information: * Visit Code: 55047 Office Visit, New Pt., Level 3. * Procedure Codes: * Electronic signature of Palak Lorenz MD on 02/17/2025 at 09:31 AM EST Sign off status: Pending * Provider: Hamilton Lorenz M.D. Date: 0 11/11/2023 Generated for Flor rice/Marivel/Andriyitting on: 1 04/20/2024 09:31 AM EST History and Physical Notes * HPI (History of Present Illness) Category Sub-Category Detail Notes Category Not es HPI Patient is here today for Pt her e to establish care, previously seen by Dariana Aldrich APRN in [place]. Pt states she was recently dx with Iritis by Dr. Kasey Urbina at [facility] in [place] and was advised to see a Retail Parts Professional, pt unsure if she needs referral Examination Category Sub-Category Detail Notes Category Not es General Examination Heart: RSR Lungs: clear to auscultatio n Extremities: no leg edema General Appearance: NAD Skin: scattered comedones, papules and a few pustules on face Peripheral pulses: normal (2+) bilatera lly
--- OUTSIDE RECORDS SUMMARY | 2024-03-02 06:15 | XMS_ITS ---
Author Organization [facility] Address [address] [place] [phone] Care Team Providers Care Floor Scraper Name Role Phone Ovi Lorenz Primary Care [...] growth Performing Lab: Notes/Report: Test performed by [employer] [address] [place] [address] , [address], [place] [address] Alcon Jhaveri MD, College Or University Faculty Member CLIA: [id number] Specimen Source Urine - Void Culture, Urine See Below Final Report : No growth REASON FOR VISIT [facility] f/u Medications Medication SIG (Take, Route, Fr [address] [place] [phone] 03/02/2024 Ovi Lorenz Urinary tract infection, site [...] * TIANA LISAJEFEJOHANNAOB:[birth year] (29 yo F)Acc No.[id number]:03/02/2024 Progress Notes Patient: JORDON JOHNSON Provider: Hamilton Lorenz M.D. :1995 A ge:28 Y S ex:Female Date:03/02/2024 Address:[address] [place] [address] [place] Subjective: * Chief Complaints: * 1 . [facility] f/u. * HPI: H PI: 28 year old female presents with c/o Here for follow up on:?02/26/2024 [facility] visit. Pt went to [facility] for burning with urination, urgency and [...] * Images: Billing Information: * Visit Code: 24625 Office Visit, Est Pt., Level 3. * Procedure Codes: 31802 Urinalysis, no micro. * Electronic signature of Palak Lorenz MD on 02/17/2025 at 09:31 AM EST Sign off status: Pending * Provider: Hamilton Lorenz M.D. Date: 0 03/02/2024 Generated for Flor rice/Marivel/eTransmitting on: 04/20/2024 09:31 AM EST History and Physical Notes * HPI (History of Present Illness) Category Sub-Category Detail Notes Category Not es HPI Here for follow up on: 5 [facility] visit. Pt went to [facility] for burning with urination, urgency and [...]
--- OUTSIDE RECORDS SUMMARY | 2024-04-13 04:45 | XMS_ITS ---
[facility] Address [address] [place] [phone] Care Team Providers Care Preschool Program Director Name Role Phone Ovi Lorenz Primary Care Provider Maite Webster Unavailable [phone] Allergies Allergen (clinical drug ingredient) Drug/Non Drug Allergy documented on EMR Reaction Allergy Type Onset Date Status oxycodone OxyCONTIN Unknown Drug Allergy Active oxycodone oxyCODONE Unknown Drug Allergy Active Results Component Value Reference Range Notes Urinalysis - Inhouse Reviewed date:04/13/2024 11:24:01 AM Interpretation: Performing Lab: Notes/Report: Color/Clarity yellow/cloudy Leuk 2+ Nitrite neg Urobili 3.2 Protein neg pH 7.0 Blood trace-intact Sp. Gr. 1.020 Ketone neg Bili neg Gluc neg P-Culture, Urine Reviewed date:04/15/2024 01:30:36 PM Interpretation: No growth Performing Lab: Notes/Report: Test performed by [employer] [employer] [address] [place] [address] , [address], [place] [address] Alcon Jhaveri MD, Auto Job Estimator CLIA: [id number] Specimen Source Urine - Void Culture, Urine See Below Final Report : No growth REASON FOR VISIT possible uti Medications Medication SIG (Take, Route, Fr equency, Duration) Notes Start Date End Date Status Lexapro 10 MG 1 tablet Orally Once a day; Duration: 30 day(s) Active Bactrim DS 800-160 MG 1 tablet Orally Tw o times a day; Duration: 7 days 04/13/2024 Active ZyrTEC Allergy 10 MG 1 tablet Orally Onc e a day; Duration: 30 day(s) Active Vital Signs Weight 122.0 lbs 04/13/2024 Blood pressure systolic 110 mm Hg 04/13/19 25 Blood pressure diastolic 70 mm Hg 025 Height 63 in 04/13/2024 BMI 21.61 kg/m2 04/13/2024 Encounters Encounter Location Date Provider Diagnosis [facility] [address] [phone] 04/13/2024 Maite Webster Dysuria R30.0 Assessments Encounter Date Diagnosis (ICD Code) Assessment Notes Treatment Notes Treatment Clinical Notes Section Notes 04/13/2024 Dysuria (ICD-10 - R30.0) Increase water intake, no caffeine, no baths only showers Plan Of Treatment Medication Medication Name Sig Start Date Stop Date Notes Bactrim DS 800-160 MG 1 tablet Orally Tw o times a day; Duration: 7 days 04/13/2024 Treatment Notes Assessment Notes Dysuria Increase water intak e, no caffeine, no baths only showers Next Appt Details Follow Up: via phone to repo rt test results, Reason: Progress Notes * MINNIE MONTIELEDOB:[birth year] (29 yo F)Acc No.[id number]:04/13/2024 Progress Notes Patient: JORDON JOHNSON Provider: ARNOLD Guillory :1995 A ge:28 Y S ex:Female Date:04/13/2024 Address:[address] [place], [place] [phone] Pcp:Ovi Lorenz Subjective: * Chief Complaints: * 1 . Possible uti. * HPI: U rology: 28 year old female presents with c/o frequent urination. c/o burning sensation. c/o flank pain. c/o Pressure. Denies : fever. Pt sts her symptoms started on Thursday, and sts that she does have test strips at home which lit up like a Mervin tree. * ROS: D ERMATOLOGY: no R ivis. n o H noble. G ASTROENTEROLOGY: no N ausea. n o V omiting. U ROLOGY: no D ifficulty urinating. n o B lood in urine. * Medical History: I rritable Bowel Syndrome, Anxiety, PCOS. * Surgical History: F oot - Plantar wart 2019. * Family History: F ather: . M [...] o xyCODONE, OxyCONTIN. Objective: * Vitals: W t:122.0, Temp:97.9, BP:110/70, Nurse:mm, Ht: 63, BMI:21.61. * Examination: G eneral Examination: General Appearance: N AD. N tex: s upple, no lymphadenopathy. C hest: n ormal shape and expansion. H eart: R SR. L ungs: c lear to auscultation. A bdomen: bowel sounds present, soft and nontender, no organomegaly or masses, no guarding or rigidity. B ack: no CVA tenderness. Assessment: * Assessment: 1. D ysuria - R30.0 (Primary) Plan: * Treatment: Value Reference Range C ulture, Urine See Below - * S pecimen Source Urine - Void - * Annie Lock 04/15/2024 9:25: 33 AM > pt started on Bactrim AlisAnanddionna Solorzano 04/15/2024 1:30:32 PM > see TE ?LAB: Urinalysis - Inhouse (Collection Date & Time - 04/13/2024)* Value Reference Range C olor/Clarity yellow/cloudy * L euk 2+ * N itrite neg * U robili 3.2 * P rotein neg * p H 7.0 * B lood trace-intact * S p. Gr. 1.020 * K etone neg * B diana neg * G sanjeev neg * Patsy Scott 04/13/2024 9:52: 58 AM > , Provider reviewed results while patient in office.EleanorMaite Solorzano 04/13/2024 11:23:57 AM > Notes: Increase water intake, no caffeine, no baths only showers?? * Procedure Codes: 8 1002 Urinalysis, no micro, 3074F SYST BP LT 130 MM HG, 3078F DIAST BP < 80 MM HG * Follow Up: v ia phone to report test results * Images: Billing Information: * Visit Code: 30763 Office Visit, Est Pt., Level 3. * Procedure Codes: 23066 Urinalysis, no micro. 3074F SYST BP LT 130 MM HG. 3078F DIAST BP < 80 MM HG. * Electronic signature of ARNOLD Stanley on 02/17/2025 at 09:31 AM EST Sign off status: Pending * Provider: ARNOLD Guillory Date: 0 04/13/2024 Generated for Flor rice/Marivel/Diana on: 1 04/20/2024 09:31 AM EST History and Physical Notes * HPI (History of Present Illness) Category Sub-Category Detail Notes Category Not es Urology frequent urination Pt sts he r symptoms started on Thursday, and sts that she does have test strips at home which lit up like a Mervin tree burning sensation flank pain fever Pressure Examination Category Sub-Category Detail Notes Category Not es General Examination Heart: RSR Lungs: clear to auscultatio n Abdomen: bowel sounds present , soft and nontender, no organomegaly or masses, no guarding or rigidity General Appearance: NAD Neck: supple, no lymphaden opathy Back: no CVA tenderness Chest: normal shape and exp ansion
--- OUTSIDE RECORDS SUMMARY | 2025-02-01 09:15 | XMS_ITS | Encounter Summary ---
Author Organization Healthcare Address [address] [place] [address] Care Team Providers Care Underwater Hunter Trapper Name Role Phone Tracy Aldrich APRN Primary Care Provider Reason for Visit * Reason Comments Eye Exam Encounter Details Date Type Department Care Team (Late st Contact Info) Description 02/01/2025 9:15 AM EST Office Visit [facility] [address] [place] [address] Ney Greene, OD [address] [facility] [address] [place] [address] Visual disturbance (Primary Dx); Retinal drusen of both eyes; Myopia of both eyes with astigmatism Social History Tobacco Use Types Packs/Day Years [...] place to sleep or slept in a custodial (including now)? No 04/27/2023 Utilities Answer Date Recorded In the past 12 months has th e [employer], gas, oil, or water [employer] threatened to shut off services in your [...] on file documented as of this encounter Functional Status * Learning Needs Screening Question Answer Date of Assessment Author Are there things (barriers) that make it harder for this patient to learn? No Barriers 02/01/2025 9:29 AM Megan Yee What is the best language to use for teaching this patient about his/her health? Maltese 02/01/2025 9:29 AM Megan Yee What format does this patient think is most helpful for learning? Listening;Reading 02/01/2025 9:29 AM Megan Yee Primary Learner Patient 02/01/2025 9:29 AM EST Megan Whitlock * Readiness to Learn Question Answer Date of Assessment Author Readiness Acceptance 02/01/2025 9:29 AM Megan Taylor documented as of this encounter Miscellaneous Notes * Progress Notes - Ney Greene, OD - 02/01/2025 9:15 AM EST 02/01/2025 Subjective Patient ID: Zayda Perez is a 29 y.o. female. Chief Complaint Eye Exam HPI Eye Exam In both eyes. Comments Zayda Perez is a 29 y.o. female presenting to clinic for CEE with hx of Myopia of both eyes, Visual disturbance, Regular astigmatism of both eyes, and Retinal drusen of both eyes. Pt reports good vision since the last visit here. Pt notes she is and has noticed increased floaters sometimes 2-3x a day and her OB requested that she come here and get a check up. Pt notesthe floaters appear to have a flash or bright light to them. Pt denies eye pain, irritation, pressure, and redness. Pt states she is not using any drops at home. Last edited by Megan Mullins on 02/01/2025 9:44 AM. No current outpatient medications on file. (Ophthalmic Drugs) No current facility-administered medications for this visit. (Ophthalmic Drugs) Current Outpatient Medications (Other) Medication Sig escitalopram (Lexapro) 10 MG tablet TAKE 1 TABLET BY MOUTH DAILY [facility]-3 (VITAFUSION PO) Take by mouth daily. cholecalciferol (Vitamin D-3) 1.25 MG (41474 UT) capsule Take 1 capsule (50,000 Units) by mouth 1 (one) time per week. (Patient not taking: Reported on 02/01/2025) Dapsone 5 % topical gel Apply topically 1 (one) time per week. (Patient not taking: Reported on 02/01/2025) fexofenadine (Amira) 60 MG tablet Take 1 tablet (60 mg) by mouth 1 (one) time each day. (Patient not taking: Reported on 02/01/2025) hydrOXYzine HCl (Atarax) 10 MG tablet Take 1 tablet (10 mg) by mouth at night if needed for anxiety. (Patient not taking: Reported on 02/01/2025) imiquimod (Aldara) 5 % cream Apply topically every night. (Patient not taking: Reported on 02/01/2025) tretinoin (Retin-A) 0.1 % cream Apply topically every night. (Patient not taking: Reported on 02/01/2025) No current facility-administered medications for this visit. (Other) ROS Positive for: Eyes Negative for: Constitutional, Gastrointestinal, Neurological, Skin, Genitourinary, Musculoskeletal,HENT, Endocrine, Cardiovascular, Respiratory, Psychiatric, Allergic/Imm, Heme/Lymph Last edited by Megan Mullins on 02/01/2025 9:27 AM. Referring physician: No referring provider defined for this encounter. Objective Base Eye Exam Visual Acuity (Snellen - Linear) Right Left Dist cc 20/25 -2 20/20 -3 Near cc J2 J2 Correction: Glasses Tonometry (iCare Tonometry, 9:54 AM) Right Left Pressure 15.3 15.4 Pupils Pupils APD Right PERRL None Left PERRL None Visual Bean (Counting fingers) Right Left Full Full Extraocular Movement Right Left Full Full Neuro/Psych Oriented x3: Yes Mood/Affect: Normal Slit Lamp and Fundus Exam External Exam [...] abnormality Perfused; no tortuosity or abnormality Periphery Attached per Optos; scattered drusen nasal to optic nerve Attached per Optos; scattered drusen nasal to optic nerve Refraction Wearing Rx Sphere Cylinder Center Sandwich Right -9.75 +1.50 064 Left -9.75 +1.25 104 Age: 1.5 yrs Type: SVL Manifest Refraction (Auto) Sphere Cylinder Center Sandwich Dist VA Right -9.75 +1.50 075 20/25 Left -9.75 +2.00 095 20/20 Tobacco Use: Low Risk (02/01/2025) Patient History Smoking Tobacco Use: Never Smokeless Tobacco Use: Never Passive Exposure: Never The patient has been counseled on tobacco cessation: Not Applicable I personally reviewed outside records from Retina service regarding patient's systemic health/retinal drusen for management/treatment of this patient. I explained the diagnoses, plan, and follow up with the patient and they expressed understanding. Patient expressed understanding of the importance of proper follow up care. Assessment/Plan Diagnoses and all orders for this visit: Visual disturbance Retinal drusen of both eyes - WIDE FIELD COLOR FUNDUS PHOTOGRAPHY - OU - BOTH EYES - OCT, Retina - OU - Both Eyes Myopia of both eyes with astigmatism 1. Visual disturbance (Primary) 2. Retinal drusen of both eyes New floaters / visual disturbance believed to be / hormonal-related. No apparent retinal holes, tears, or breaks detected in either eye per wide field fundus photography. Unique, nasal drusen appear stable to 08/25/23 visit with [facility]/Dr. Harrington. Educated patient on the signsand symptoms of retinal detachment. Instructed patient to call clinic immediately if she experiences any changes in her eyes or vision. - WIDE FIELD COLOR FUNDUS PHOTOGRAPHY - OU - BOTH EYES - OCT, Retina - OU - Both Eyes 3. Myopia of both eyes with astigmatism Updated refraction 08/24/[address] Dallas. Follow up if symptoms worsen or fail to improve. Electronically signed by: Ney Greene, DEREK 02/01/2025 1:14 PM documented in this encounter Plan of Treatment Upcoming Encounters Date Type Department Care Team (Late st Contact Info) Description 09/27/2025 8:15 AM EDT Office Visit [facility] [address] [place] [address] CelenaSmita olivares, OD [address] [place] [address] documented as of this encounter Procedures Procedure Name Priority Date/Time Associated Diagnosis Comments OCT, RETINA - OU - BOTH EYES Routine 02/01/2025 1:14 PM EST Retinal drusen of both eyes WIDE FIELD COLOR FUNDUS PHOTOGRAPHY - OU - BOTH EYES Routine 02/01/2025 1:14 PM EST Retinal drusen of both eyes documented in this encounter Results * OCT, Retina - OU - Both Eyes (02/01/2025 1:14 PM EST) Anatomical Region Laterality Modality Head Optical Coherenc e Tomography Narrative 02/01/2025 1:14 PM EST Right Eye Quality was good. Scan locations included subfoveal. Progression has been stable. Findings include normal observations, normal foveal contour. Left Eye Quality was good. Scan locations included subfoveal. Progression has been stable. Findings include normal observations, normal foveal contour. 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
--- OUTSIDE RECORDS SUMMARY | 2025-02-01 09:35 | XMS_ITS | Encounter Summary ---
Author Organization Healthcare Address [address] [place] [address] Care Team Providers Care Division Manager Name Role Phone Tracy Aldrich APRN Primary Care Provider Encounter Details Date Type Department Care Team (Late st Contact Info) Description 02/01/2025 9:35 AM EST Ancillary Procedure [facility] [address] [place] [address] Social History Tobacco Use Types [...] place to sleep or slept in a retirement (including now)? No 04/27/2023 Utilities Answer Date [...] Description 09/27/2025 8:15 AM EDT Office Visit [facility] [address] [place] [address] Smita Dallas, DEREK [address] [phone] documented as of this encounter Procedures Procedure Name Priority Date/Time Associated Diagnosis Comments WIDE FIELD COLOR FUNDUS PHOTOGRAPHY - OU - BOTH EYES Routine 02/01/2025 1:14 PM EST Retinal drusen of both eyes documented in this encounter Results * WIDE FIELD COLOR FUNDUS PHOTOGRAPHY - OU - BOTH EYES (02/01/2025 1:14 PM EST) Anatomical Region Laterality Modality Fundus Photograp hy Narrative 02/01/2025 1:14 PM EST right eye (OD): No apparent retinal holes, tears, or breaks; drusen around ONH nasally left eye (OS): No apparent retinal holes, tears, or breaks; drusen around ONH nasally us Ney Greene OD OPHTH PHOTOGRAPHY Final Res ult documented in this encounter Visit Diagnoses Not on filedocumented in this encounter Additional Health Concerns Assessment Noted Time A fall risk assessment has been complete d for the patient 02/01/2025 9:48 AM EST A Body Mass Index follow-up plan has been documented for the patient 08/25/2023 8:45 AM EDT documented as of this encounter Care Teams Division Manager Relationship Specialty Start Date End Date Tracy Aldrich APRN [address] [place] [address] PCP - General 05/12/22 documented as of this encounter
--- OUTSIDE RECORDS SUMMARY | 2025-02-01 09:35 | XMS_ITS | Encounter Summary ---
Author Organization Healthcare Address [address] [place] [address] Care Team Providers Care Bleach Boiler Packer Name Role Phone Tracy Aldrich APRN Primary Care Provider Encounter Details Date Type Department Care Team (Late st Contact Info) Description 02/01/2025 9:35 AM EST Ancillary Procedure [facility] [address] [place] [address] Social History Tobacco Use Types [...] Description 09/27/2025 8:15 AM EDT Office Visit [facility] [address] [place] [address] Smita Dallas, DEREK [address] [address] documented as of this encounter Procedures [...] Findings include normal observations, normal foveal contour. us Ney Greene OD OPHTH TOMOGRAPHY Final Resu lt documented in this encounter Visit Diagnoses Not on filedocumented in this encounter Additional Health Concerns Assessment Noted Time A fall risk assessment has been complete d for the patient 02/01/2025 9:48 AM EST A Body Mass Index follow-up plan has been documented for the patient 08/25/2023 8:45 AM EDT documented as of this encounter Care Teams Bleach Boiler Packer Relationship Specialty Start Date End Date Tracy Aldrich APRN [address] [place] [address] PCP - General 05/12/22 documented as of this encounter
--- OUTSIDE RECORDS SUMMARY | 2025-02-17 09:31 | XMS_ITS | Patient Health Record ---
Author Organization [facility] Address [address] [facility] [address] [place] [address] Care Team Providers Care Systems Engineering Manager Name Role Phone Piper Chiu Unavailable [phone] Allergies Allergen (clinical drug ingredient) Drug/Non Drug [...] Status Risk Notes Problem Gynecological examination normal ([id number] ) Cervical smear, as part of routine gynecological examination (Z01.419) 10/26/19 16 Active confirmed Annual without abnormal findings Plan Of Treatment No Information Medical (General) History Medical History History ICD Code Anxiety Urinary Tract Infections Yeast Infections A Routine ABORTIONS: 0 MENSTR FLOW: Moderate GILDESS FE 1.530 1.5-30 MG-MCG ORAL TAB LET, ORAL Surgical History Surgery Date(Month/Year) denies
--- OUTSIDE RECORDS SUMMARY | 2025-02-17 09:31 | XMS_ITS | Clinical Summary ---
Author Organization [facility] Address [address] [place] [id number] Care Team Providers Care Rail Doweling Machine Operator Name Role Phone Jannette Armenta MD Primary [...] patient's age to complete this topic Insurance [facility] PPO Care Teams Rail Doweling Machine Operator Relationship Specialty Start Date End Date Jannette Armenta MD [address] [place] [address] PCP - General Internal Medicine 02/07/16
--- OUTSIDE RECORDS SUMMARY | 2025-02-17 09:31 | XMS_ITS | Patient Health Record ---
[facility] Organization [facility] Address [address] [place] [id number] Care Team Providers Care [employer] Member Name Role Phone Ovi Lorenz Primary Care Provider Maite Webster Unavailable [phone] Allergies Allergen (clinical drug ingredient) Drug/Non Drug [...] growth Performing Lab: Notes/Report: Test performed by [facility] [address] [place] [address] , [place] [address] Alcon Jhaveri MD, Refrigerator Crater CLIA: [id number] Specimen Source Urine - Void Culture, Urine See Below Final Report : No growth Urinalysis - Inhouse Reviewed date:04/13/2024 11:24:01 AM Interpretation: Performing Lab: Notes/Report: Color/Clarity yellow/cloudy Leuk 2+ Nitrite neg Urobili 3.2 Protein neg pH 7.0 Blood trace-intact Sp. Gr. 1.020 Ketone neg Bili neg Gluc neg P-Culture, Urine Reviewed date:04/15/2024 01:30:36 PM Interpretation: No growth Performing Lab: Notes/Report: Test performed by [facility] [address] [place] [address] Arminda Silva, [address], [place] [address] Alcon Jhaveri MD, Refrigerator Crater CLIA: [id number] Specimen Source Urine - Void Culture, Urine [...] Risk Notes Problem Polycystic ovary syndrome (disorder) (218086179) PCOS (polycystic ovarian syndrome) (E28.2) Active confirmed Vital Signs Heart Rate 100 /min 03/02/2024 Blood pressure diastolic 70 mm Hg 04/13/2024 Height 63 in 04/13/2024 Blood pressure systolic 110 mm Hg 04/13/2024 Weight 122.0 lbs 04/13/2024 BMI 21.61 kg/m2 04/13/2024 Encounters Encounter Location Date Provider Diagnosis [facility] [facility]10 [facility] [address] [place] [id number] 03/02/2024 Ovi [place] Urinary tract infection, site not specified N39.0 and Unspecified Escherichia coli [E. coli] as the cause of diseases classified elsewhere B96.20 [facility] [address] [place] [id number] 04/13/2024 Maite Webster Dysuria R30.0 [facility] 1210 [facility] [address] [place] [id number] 04/15/2024 Matie Webster Assessments Encounter Date Diagnosis (ICD Code) [...] End Date FARRAH JACKSON [id number] [place] [address] [id number] JORDON MONTIEL Self - patient is the insured Medical (General) History Medical History History ICD Code Irritable Bowel Syndrome Anxiety PCOS Surgical History Surgery Date(Month/Year) Foot - Plantar wart 2019
--- OUTSIDE RECORDS SUMMARY | 2025-02-17 09:31 | XMS_ITS | Encounter Summary ---
Author Organization Healthcare Address [address] [place] [address] Care Team Providers Care Computer Hardware Designer Name Role Phone Tram Leija ENGINEER PROCESS Primary Care Provider [phone] Tracy Aldrich ENGINEER PROCESS Primary Care Provider Encounter Details Date Type Department Care Team (Late st Contact Info) Description 12/05/2020 Lab Requisition [facility] [address] [place] [address] Flavio James MD [address] [facility] [address] [place] [address] Radha Social History Tobacco Use Types Packs/Day [...] Description 09/27/2025 8:15 AM EDT Office Visit [facility] [address] [place] [address] Smita Dallas, OD [address] [place] [address] documented as of this encounter Procedures Procedure Name Priority Date/Time Associated Diagnosis Comments SURGICAL PATHOLOGY EXAM Routine 12/06/2020 5:51 PM EDT Melena documented in this encounter Results * Surgical Pathology Exam (12/06/2020 5:51 PM EDT) Case Report Surgical Pathology Case: [id number] Authorizing Provider: Flavio James MD Collected: Ordering Location: [facility] Lab Received: 12/05/2020 1309 Pathologist: Linda Dhillon MD Specimen: Rectum, Rectal Bx 12/06/2020 5:51 PM EDT [facility] Final Diagnosis Rectum, biopsy: Normal colonic mucosa with lymphoid follicle Mucosal edema and focal minor superficial petechial hemorrhage (consistent with preparation artifact) 12/06/2020 5:51 PM EDT [facility] at 1751 EDT Clinical Information Hematochezia 12/06/2020 5:51 PM EDT [facility] Gross Description A. RECTAL BX The specimen is received in formalin labeled rectal BX , and consists of three colon-brown soft tissue fragments ranging from 0.2-0.3 cm in greatest dimension. Entirely submitted in cassette A1. Viri Houston 12/06/2020 5:51 PM EDT [facility] Note: A resident was involved in the service. I attest I examined the relevant preparations for the specimens and confirmed the diagnosis or interpretation. 12/06/2020 5:51 PM EDT [facility] Tissue Rectum structure / Unknown 12/05/2020 1:09 PM EDT us Flavio James MD LAB PATHOLOGY ORDERABLES Final Result [facility] [address] [place] [address] documented in this encounter Visit Diagnoses Diagnosis Melena Blood in stool documented in this encounter Additional Health Concerns Assessment Noted Time A fall risk assessment has been complete d for the patient 11/13/2020 12:24 PM EDT documented as of this encounter Care Teams Computer Hardware Designer Relationship Specialty Start Date End Date Tram Leija, ENGINEER PROCESS [address] [place] [phone] PCP - General 07/06/20 05/11/22 Tracy Aldrich APRN [address] [place] [phone] PCP - General 05/12/22 documented as of this encounter
--- OUTSIDE RECORDS SUMMARY | 2025-02-17 09:31 | XMS_ITS ---
Author Organization Unknown ENCOUNTERS Encounter Performer Location Date Diagnosis Diagnosis Status Emergency [place] [address] [place] [id number] CORI Pre Admit [facility] [place] [address] [place] [address] [id number] *Note: Encounters from your own facility or health system may be excluded. Allergies, Adverse Reactions, Alerts Allergen Type Severity Identification Date latex drug allergy [id number] Medications Name Date Quantity Days Supplied GPI Number
--- OUTSIDE RECORDS SUMMARY | 2025-02-17 09:32 | XMS_ITS | Encounter Summary ---
Author Organization Healthcare Address [address] [place] [address] Care Team Providers Care Food Service Associate Name Role Phone Tracy Aldrich APRN Primary Care Provider Encounter Details Date Type Department Care Team (Latest Contact Info) Description 02/01/2025 Travel Social History Tobacco Use Types Packs/Day [...] as of this encounter Functional Status * Communicable Disease Screening Question Answer Date of Assessment Author Have you been in contact wit h someone who was sick? No / Unsure 02/01/2025 9:14 AM Oseas Stewart Do you have any of the following new or worsening symptoms? None of these 02/01/2025 9:14 AM Oseas Stewart * Travel Screening Question Answer Date of Assessment Author Have you traveled intern[place] or domestically in the last month? No 02/01/2025 9:14 AM EST Oseas Banegas documented as of this encounter Mental Status * Communicable Disease Screening Question Answer Entry Date Author Have you been in contact wit h someone who was sick? No / Unsure 02/01/2025 9:14 AM Eris Stewartydan Byron Do you have any of the following new or worsening symptoms? None of these 02/01/2025 9:14 AM EST Elias Oseas Matthews * Travel Screening Question Answer Entry Date Author Have you traveled intern[place] or domestically in the last month? No 02/01/2025 9:14 AM EST Karyn Banegasan Byron documented in this encounter Plan of Treatment Upcoming Encounters Date Type Department Care Team (Late st Contact Info) Description 09/27/2025 8:15 AM EDT Office Visit [facility] [address] [place] [address] Smita Dallas, OD [address] [facility] [address] [place] [address] documented as of this encounter Visit Diagnoses Not on filedocumented in this encounter Additional Health Concerns Assessment Noted Time A fall risk assessment has been complete d for the patient 02/01/2025 9:48 AM EST A Body Mass Index follow-up plan has been documented for the patient 08/25/2023 8:45 AM EDT documented as of this encounter Care Teams Food Service Associate Relationship Specialty Start Date End Date Tracy Aldrich APRN [address] [place] [phone] PCP - General 05/12/22 documented as of this encounter
--- OUTSIDE RECORDS SUMMARY | 2025-02-17 09:32 | XMS_ITS | Clinical Summary ---
Author Organization [facility] Address [address] 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 12 capsule 4 Active Additional Information Patient not taking.Reported on 02/01/2025 escitalopram (Lexapro) 10 MG tabletIndicatio ns:Generalized anxiety disorder TAKE 1 TABLET BY MOUTH DAILY 90 tablet 5 Active XC-Opg-TS-Bracey -3 (VITAFUSION PO) Take by mouth daily. Active Active Problems Problem Noted Date Diagnosed [...] Encounters Date Type Department Care Team Description 02/01/2025 9:35 AM EST Ancillary Procedure [facility] [address] [place] [address] 02/01/2025 9:35 AM EST Ancillary Procedure [facility] [address] [place] [address] 02/01/2025 9:15 AM EST Office Visit [facility] [address] [place] [address] Ney Greene, OD Visual disturbance (Primary Dx); Retinal drusen of both eyes; Myopia of both eyes with astigmatism 02/01/2025 Travel from Last 3 Months Immunizations Immunization Administration Dates Next Due HPV 9-Valent 09/15/2022,05/16/2022,03/18/2022 Hep B, adult 09/17/2018,04/20/2018,03/18/2018 Influenza, Unspecified 11/16/2019,11/12/2018 Influenza, injectable, quadr ivalent, preservative free 12/19/2022,01/09/2022,12/05/2020 Influenza, recombinant, quad rivalent, injectable, preservative free 09/19/2022 Influenza, seasonal, injecta ble, preservative free 11/16/2024,12/09/2023 MMR 05/24/2018,04/20/2018 Pfizer Covid-19 Vaccine 12y+ , Manas Protein, PF, Renzo-Sucrose 12/19/2022 [employer] COVID-19 Vac cine (Purple Cap) 12+ 03/29/2020,03/08/2020 [...] Stroke Paternal Grandfather Stroke Paternal Grandmother Ada burne Bipolar depression Sister 1 Depression Sister 2 [...] place to sleep or slept in a [place] facility (including now)? No 04/27/2023 Utilities Answer Date [...] Description 09/27/2025 8:15 AM EDT Office Visit [facility] [address] [place] [address] Smita Dallas, OD [address] [facility] [address] [place] [address] Health Maintenance Due Date Last Done Comments [facility]-HIV Screening 1993 [facility]-Hepatitis C Screening 1993 [facility]-/Child/Adol SDOH Screenings 1993 [facility]- SDOH Screenings 2011 [facility]-Adult SDOH Screenings 2011 [facility]-Depression Screening 06/23/2024 06/24/2023 [id number] Vaccine ( season) 2024 12/19/2022, 12/07/2020, 03/29/2020, [...] PM EST Retinal drusen of both eyes PAP TEST - CYTOLOGY Routine 03/18/2022 2 :36 PM EST Well woman exam with routine gynecological exam from Last 3 Months or Most Recently Relevant to Health Maintenance Results * OCT, Retina - OU - [...] Greene OD OPHTH PHOTOGRAPHY Final Res ult * Pap Test (03/18/2022 2:36 PM EST) Case Report Cytology Case: [id number] Authorizing Provider: Marilynn Quintana APRN, Collected: 03/18/2022 1436 DNP Ordering Location: Medical Office Building Received: 03/18/2022 1603 Obstetrics and Gynecology First Screen: Chio Rangel Specimen: ThinPrep Pap Test, Liquid-Based Cervical/Vaginal, CERVICAL/VAGINAL 03/24/2022 4:21 PM EST [facility] Interpretation NEGATIVE FOR INTRAEPITHELIAL LESION OR MALIGNANCY 03/24/2022 4:21 PM EST [facility] at 1621 EST Specimen Adequacy Satisfactory for evaluation; endocervical/hernandez sformation zone component present. Obscuring inflammation. 03/24/2022 4:21 PM EST [facility] Cervical cytology is a screening test [...] results is suggested (please call Microbiology at [phone] for results). 03/24/2022 4:21 PM EST [facility] Menstrual Status Cyclic 03/24/19 4:21 PM EST [facility] Contraceptive History Not Applicable 03/24/2022 4:21 PM EST [facility] Screening Type Routine Screen 2022 4:21 PM EST [facility] High Risk? No 03/24/2022 4:21 PM EST [facility] HPV Testing Requested? No HPV Testing Requested 03/24/2022 4:21 PM EST [facility] Previous Cancer History No 03/24/2022 4:21 PM EST [facility] Clinical Information Z01.419 - Well woman exam with routine gynecological exam [ICD-10-CM] 03/24/2022 4:21 PM EST [facility] Last Menstrual Period 02/20/2022 03/24/2022 4:21 PM EST [facility] Swab Vaginal and cervical cytologic material / Unknown Non-blood Collection / Unknown 03/18/2022 2:36 PM EST 03/18/2022 4:03 PM EST us Marilynn Quintana APRN, DNP LAB CYTOLOGY ORDERABL ES Final Result [facility] [address] [place] [address] from Last 3 Months or Most Recently Relevant to Health Maintenance Insurance [employer] Care Teams 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
--- NOTE | 2025-02-17 09:45 | US_ITS ---
PROCEDURE: US OB FOLLOW UP CLINICAL INDICATION: f/u on growth and placental lakes COMPARISON: No exams were available for comparison FINDINGS: Transabdominal sonographic images of the pelvis were obtained. The following parameters are obtained: From her established due date she is 26weeks 2days Viable fetus in the cephalic presentation with a posterior placenta grade 1. There continues to be multiple placental Lakes present. The cervix measures the cervix measures 3.43 cm in length heart rate: 147bpm bpm. Average ultrasound age 26 weeks 1 day Estimated weight 854 grams, 1 lb 14 oz BPD: 27weeks 1day HC: 25weeks 5days AC: 26weeks 2days FL: 25weeks 1day HC/AC: 1.09 FL/BPD: 0.68 FL/AC: 0.21 Growth percentile: 21 Amniotic fluid: Appears adequate No obvious anomalies evident. profile seen, stomach, bladder, kidneys, three-vessel cord, four chamber heart appear normal. IMPRESSION: 1. Viable fetus in the cephalic presentation with a posterior placenta grade 1. There continue to be multiple placental lakes. 2. The fluid is within normal limits. 3. There has been good interval growth with the fetus currently 21st percentile. 4. Limited anatomical scan appears normal. Dictated by: Darwin Pacheco MD 02/18/2025 08:06 Darwin Pacheco MD in OV 02/18/2025 08:06
== END 2025-02-17 23:59 | disposition home or self-care (01) ==
LOC: RAD 09:29
PROVIDERS: PCP Family Medicine; Visit Provider Obstetrics & Gynecology
DX: O43.102 Malformation of placenta, unspecified, second trimester (principal); Z3A.26 26 weeks gestation of pregnancy
CPT/HCPCS: 76816